=== PATIENT | female | born 1960 | race Caucasian/White ===

== ENCOUNTER 2022-02-13 07:16 | Inpatient (IN) | payer OTHER, MEDICAID, SELFPAY ==
[2022-02-13] VITALS (21 sets, daily range): BP systolic 69–153; BP diastolic 57–91; PULSE 94–149; RESP 16–34; TEMP 36.1–37; O2SAT 94–100; BMI 33.5
--- NOTE | ~2022-02-13 | US_ITS ---
EXAMINATION: US venous doppler [facility] DATE: 02/18/2022 14:01 INDICATION: Bilateral lower limb pain and swelling. TECHNIQUE: Grayscale images without and with compression and Doppler images of the bilateral lower ex tremity veins were obtained. COMPARISON: None FINDINGS: Acute thrombus in the right posterior tibial and peroneal veins. The right common femoral vein, profu nda (deep) femoral vein, femoral vein, popliteal vein veins are patent. The left common femoral vein, profunda femoral vein, femoral vein, popliteal vein, peroneal vein, pos terior tibial veins are patent. IMPRESSION: Acute venous thrombosis involving the right posterior tibial and peroneal veins. Results reported telephonically to Quyen Queen RN by Dr. Henriquez at 4:14 PM on 02/18/2022. Reviewed, dictated and finalized at location K. LER OPERATOR IMPRESSION: Acute venous thrombosis involving the right posterior tibial and peroneal veins . Results reported telephonically to Quyen Queen RN by Dr. Henriquez at 4:14 PM on 02/18/2022.
--- NOTE | ~2022-02-13 | US_ITS ---
EXAMINATION: US venous doppler [facility] DATE: 02/18/2022 14:01 INDICATION: Bilateral upper extremity edema. TECHNIQUE: Grayscale ultrasound images without and with compression and Doppler ultrasound images of the bilateral upper extremity veins were obtained. COMPARISON: None. FINDINGS: The visualized portions of the right internal jugular vein, subclavian vein, axillary vein, brachial veins, basilic vein, cephalic vein, radial vein, and ulnar vein are patent. Acute thrombus in the left brachial, radial, and ulnar veins. The visualized portions of the left int ernal jugular vein, subclavian vein, axillary vein, basilic vein, and cephalic vein are patent. IMPRESSION: Acute thrombus in the left brachial, radial, and ulnar veins. Results reported telephonically to Quyen Queen RN by Dr. Henriquez at 4:22 PM on 02/18/2022. Reviewed, dictated and finalized at location K. LINE WORKER IMPRESSION: Acute thrombus in the left brachial, radial, and ulnar veins. Results reported telephonically to Quyen Queen RN by Dr. Hneriquez at 4:22 P M on 02/18/2022.
--- NOTE | ~2022-02-13 | CT_ITS ---
EXAMINATION: CT soft tissue neck w con DATE: 02/13/2022 10:10 INDICATION: Facial swelling. TECHNIQUE: Computed tomography (CT) of the neck was performed with 75 mL Omnipaque-350 intravenous co ntrast. Automated exposure control and iterative reconstruction technique were employed. The dose-carroll gth product was 555.32 mGy-cm. COMPARISON: None FINDINGS: Right parotid gland is enlarged with increased attenuation and surrounding fat stranding, c onsistent with parotiditis. There is enlargement of the adjacent right masseter muscle, consistent wi th inflammation. There is no sialolith. There are no pathologically enlarged lymph nodes. There are n odules in the thyroid measuring up to 13 mm, likely not clinically significant. There is no visible p laque in the proximal internal carotid arteries. There are likely changes of ocular lens replacement surgeries. There are bilateral otomastoid effusions. There is mild cervical spondylosis. IMPRESSION: 1. Right-sided parotiditis. Reviewed, dictated and finalized at location A. ER SWORDFISH IMPRESSION: 1. Right-sided parotiditis.
--- NOTE | ~2022-02-13 | CT_ITS ---
EXAMINATION: CTA chest PE protocol DATE: 02/13/2022 09:03 INDICATION: Shortness of breath. TECHNIQUE: Computed tomography angiography (CTA) of the chest was performed with 100 mL Omnipaque-350 intravenous contrast timed to evaluate the pulmonary arteries. Coronal maximum intensity projection 3D-reconstructions were created by the technologist. Automated exposure control and iterative reconst ruction technique were employed. The dose-length product was 893.33 mGy-cm. COMPARISON: None. FINDINGS: The lung volumes are small. There is atelectasis bilaterally with an inferior predominance. There is a small left pleural effusion. The heart size is normal. Main pulmonary artery is enlarged, consistent with pulmonary arterial hypertension. There is no pulmonary embolus. Partially visualized is fat stranding in right face and neck. There are nodules in the thyroid measuring up to 9 mm, like ly not clinically significant. There are changes of cholecystectomy. There is mild thoracic spondylos is. There is a chronic burst fracture of L1. IMPRESSION: 1. No pulmonary embolus. 2. Small lung volumes with atelectasis in the lungs with a basilar predominance. 3. Partially visualized fat stranding in right face and neck, consistent with inflammation. Reviewed, dictated and finalized at location A. STRIAL DESIGNER IMPRESSION: 1. No pulmonary embolus. 2. Small lung volumes with atelectasis in the lungs with a basilar predominance . 3. Partially visualized fat stranding in right face and neck, consistent with i nflammation.
--- NOTE | ~2022-02-13 | XR_ITS ---
EXAMINATION: XR chest 1V portable DATE: 02/13/2022 08:03 INDICATION: Shortness of breath. TECHNIQUE: A single frontal view of the chest was obtained. COMPARISON: None. FINDINGS: The lung volumes are small. There is mild atelectasis at the lung bases. No pleural effusio n or pneumothorax. The heart size is normal. IMPRESSION: 1. Small lung volumes with mild atelectasis at the lung bases. Reviewed, dictated and finalized at location A. ERGARTNER
--- NOTE | 2022-02-13 07:17 | ECG_ITS ---
Measurements Intervals [place] Rate: 143 P: MI: 0 QRS: 264 QRSD: 177 T: 0 QT: 359 QTc: 554 Interpretive Statements ATRIAL FIBRILLATION WITH RAPID VENTRICULAR RESPONSE RIGHT BUNDLE BRANCH BLOCK LEFT POSTERIOR FASCICULAR BLOCK CANNOT RULE OUT SEPTAL INFARCT, AGE INDETERMINATE BASELINE WANDER- V1 ABNORMAL ECG NO PREVIOUS ECG AVAILABLE FOR COMPARISON Electronically Signed On 02-13-2022 7:56:09 NICKER by Bahman Antony D.O.
[2022-02-13 07:36] LABS: Alveolar/Arterial O2 Gradient 115.8 mmHg; Carboxyhemoglobin 1.6 % THb (0-2.0); Device NASAL CANNULA; Fractional Inspired Oxygen 36 %; HCO3 ABG 23.4 mEq/l (22.0-26.0); Methemoglobin ABG 0.1 %THb (0-1.5); Modified Allen's Test Pass; Oxygen Content ABG 19.4 %vol (16.0-22.0); Oxygen Saturation ABG 96.7 % (95.0-100.0); Oxyhemoglobin 94.8 % THb (90.0-100.0); PCO2 ABG 42.5 mmHg (35.0-45.0); PO2 ABG 91.6 mmHg (80.0-100.0); PO2 FiO2 Ratio Arterial Blood 2.54 %; Reduced Hemoglobin 3.5 %THb (0-5.0); Site Drawn LEFT RADIAL; Total Hemoglobin 14.5 g/dL (12.0-18.0); pH ABG 7.359 (7.350-7.450)
[2022-02-13] MEDS: SODIUM CHLORIDE 0.9% IV 500 ML 999 ML IV CONT (07:38)
[2022-02-13 07:45] LABS: Basophils Percent Auto 0.1 % (0.2-1.2); Hematocrit 43.9 % (37.0-47.0); Hemoglobin 13.9 g/dL (12.0-15.0); Immature Granulocyte Absolute 0.26 K/mm3 (0.00-0.031); Lymphocytes Absolute Auto 1.19 K/mm3 (0.9-3.2); Lymphocytes Percent Auto 4.7 % (18.3-44.2); Mean Corpuscular HGB Conc 31.7 g/dl (32-36); Mean Corpuscular Volume 91.5 fl (80-100); Mean Platelet Volume 9.5 fl (7.4-10.4); Monocytes Absolute Auto 2.2 K/mm3 (0.1-0.6); Monocytes Percent Auto 8.7 % (2.6-8.5); Neutrophils Absolute Auto 21.4 K/mm3 (1.3-6.7); Neutrophils Percent Auto 85.5 % (45.5-73.1); Platelet Count Result 414 k/mm3 (150-375); Red Cell Distribution Width 14.9 % (11.5-14.5); White Blood Count 25.1 K/mm3 (4.5-10.0)
[2022-02-13 07:55] LABS: Alanine Aminotransferase 49 U/L (6-35); Albumin Level 3.8 g/dL (3.5-5.1); Alkaline Phosphatase 117 U/L (38-126); Anion Gap 16 mmol/L (8-16); Aspartate Amino Transferase 62 U/L (14-36); Bilirubin,Total 1.6 mg/dL (0.2-1.3); Blood Urea Nitrogen 28 mg/dL (7-17); Carbon Dioxide 24 mmol/L (22-30); Chloride 101 mmol/L (98-107); Estimated Glomerular Filt Rate > 60; Glucose 128 mg/dL (65-110); Potassium 3.5 mmol/L (3.4-5.0); Sodium 141 mmol/L (137-145)
[2022-02-13 07:56] LABS: INR 1.4; Prothrombin Time 16.3 Seconds (11.1-14.7)
[2022-02-13 07:57] LABS: Partial Thromboplastin Time 28.8 SECONDS (22.3-36.8)
[2022-02-13 08:03] LABS: NT Pro B Type Natriuretic Pept 1360 pg/mL (5-100)
[2022-02-13 08:08] LABS: Platelet Estimate Increased (Adequate); Poikilocytosis 1+ (NORMAL)
[2022-02-13 08:09] LABS: Burr Cells 1+ (NORMAL); Hypochromasia 1+ (NORMAL); Schistocytes None Seen (NORMAL)
[2022-02-13] MEDS: SODIUM CHLORIDE 0.9% IV 1,000 ML 999 ML IV CONT ×2 (08:22→10:53)
[2022-02-13 08:30] LABS: Influenza A QL RT-PCR Negative (Negative); Influenza B QL RT-PCR Negative (Negative); SARS-CoV-2 RNA PCR Negative
--- NOTE | 2022-02-13 08:57 | PC.NURSE ---
pt at CT
[2022-02-13] MEDS: AMIODARONE 150 MG/D5W 100 ML 150 MG/100 ML BAG 600 MG IV CONT (09:12)
[2022-02-13 09:23] LABS: Appearance Urine Clear (Clear); Bilirubin Urine 2+ (Negative); Blood Urine Trace-intact (Negative); Color Urine Dark Yellow (Yellow); Glucose Urine UA Negative (Negative); Ketones Urine 1+ mg/dL (Negative); Leukocyte Esterase Ur Negative LEU/UL (Negative); Nitrate Urine Negative (Negative); Protein Urine 1+ mg/dL (Negative); Specific Grav Ur 1.015 (1.001-1.035); Urobilinogen Urine >=8.0 mg/dL (<2.0)
[2022-02-13 09:35] LABS: Mucus Urine Rare /lpf; Squamous Epithelial Cell Urine Occasional /hpf (Few)
[2022-02-13 09:37] LABS: Add Urine Microscopic? YES
--- NOTE | 2022-02-13 10:31 | ED.SOB ---
HPI - SOB/Dyspnea General Chief Complaint: Shortness of Breath/Dyspnea Stated Complaint: diff breathing History of Present Illness HPI Narrative: Patient is a 61-year-old female who presents ER with concerns of decreased O2 sat from the detention. Apparently her BiPAP fell off while sleeping last night and her oxygen saturation was 88% this morning. According patient wears BiPAP at all times. Patient unable to provide history as to why she is here. Patient noted to have significant right facial swelling that reports is new. Reports she did have some dental pain earlier last week. Patient also found to be in atrial fibrillation with RVR. Related Data Home Medications Medication Instructions Recorded Confirmed acetaminophen 325 mg tablet 650 mg PO Q6-8H PRN Pain 02/13/22 02/13/22 (Tylenol) acetazolamide 250 mg tablet 250 mg PO DAILY 02/13/22 02/13/22 albuterol sulfate 2.5 mg/3 mL 2.5 mg inhalation Q4-6H 02/13/22 02/13/22 (0.083 %) solution for nebulization aspirin 81 mg tablet,delayed 81 mg PO DAILY 02/13/22 02/13/22 release bisacodyl 10 mg rectal suppository 10 mg RECTAL BID PRN Constipation 02/13/22 02/13/22 furosemide 40 mg tablet 40 mg PO DAILY 02/13/22 02/13/22 magnesium citrate (Citroma oral 296 ml PO DAILY PRN Constipation 02/13/22 02/13/22 solution) magnesium hydroxide 400 mg/5 mL 30 ml PO HS PRN Constipation 02/13/22 02/13/22 oral suspension (Milk of Magnesia) menthol-cetylpyridinium Cl 2 mg 1 ruma mucous membrane Q2-3H PRN 02/13/22 02/13/22 lozenges Cough multivitamin with iron-mineral 1 tablet PO DAILY 02/13/22 02/13/22 phenol 1.4 % mucosal aerosol spray 1 spray mucous membrane Q4H PRN 02/13/22 02/13/22 Dry Mouth potassium chloride 20 mEq 20 meq PO DAILY 02/13/22 02/13/22 tablet,extended release sennosides 8.6 mg-docusate sodium 2 tab-cap PO HS 02/13/22 02/13/22 50 mg tablet (Senna Plus) sodium phosphates 19 gram-7 118 ml RECTAL BID PRN Constipation 02/13/22 02/13/22 gram/118 mL enema (Fleet Enema) spironolactone 25 mg tablet 25 mg PO BID 02/13/22 02/13/22 tolnaftate 1 % topical aerosol 1 spray topical DAILY PRN Skin 02/13/22 02/13/22 Irritation Allergies Allergy/AdvReac Type Severity Reaction Status Date / Time grape Allergy Unknown Verified 02/13/22 13:10 shellfish derived Allergy Unknown Verified 02/13/22 13:10 Review of Systems Review of Systems: ROS unobtainable: Yes unobtainable due to mental status [facility] Past Medical History Medical History (Updated 02/13/22 @ 19:02 by Frederic Crystal MD) Myotonic muscular dystrophy Surgical History Surgical History (Updated 02/13/22 @ 19:01 by Frederic Crystal MD) Surgical history unknown Social History Social History Smoking status: Former smoker Exam Narrative: GENERAL: Chronically ill-appearing, obese, and in no acute distress. HEAD: Normocephalic, atraumatic. EYES: PERRL and EOMI. ENT: Mucous membranes moist. Significant enlargement of the right parotid gland with erythema/warmth/tenderness going from the ear down to the mid neck. NECK: Induration along the right anterior neck from parotiditis. No tracheal deviation. CHEST: Clear to auscultation. No respiratory distress. HEART: Regular rate and rhythm. Normal peripheral pulses. ABDOMEN: Soft, nontender, nondistended. EXTREMITIES: Chronically weak related to muscular dystrophy. No deformity of the upper or lower extremities. SKIN: Warm, dry, no rash. NEURO: Alert and oriented x1. Course Course Emergency Course: Admit to hospitalist service. Discussed parotitis with Dr. Blackmon with ENT. Feels if symptoms not improving in 2 days repeat imaging to rule out abscess would be melgar but no surgical management at this time. He would recommend hot compresses in addition to the Unasyn that is being given. Patient started on amiodarone and attempts to control atrial fibrillation. Vital Signs Vital signs: Vital Signs Temperature 98.6 F
[2022-02-13] MEDS: AMPICILLIN SULB 3 GM/NS 100 ML 3 GM/100 ML VIAL IVPB ×3 (10:48→23:34)
[2022-02-13] MEDS: ENTER PT HEIGHT XX (10:55)
[2022-02-13] MEDS: AMIODARONE 360 MG/D5W 200 ML 360 MG/200 ML BAG 33.33 MG IV CONT (10:55)
[2022-02-13] MEDS: SODIUM CHLORIDE 0.9% IV 1,000 ML 125 ML IV CONT ×2 (12:36→20:24)
[2022-02-13] MEDS: MORPHINE SULFATE (*CRX) 4 MG/ML INJ IV PUSH (12:47)
--- NOTE | 2022-02-13 13:45 | ADMGEN ---
This patient, Blessing Demarco, was admitted to IMU Room 211-01. Patient/family oriented to hospital policies and general routines including ID bracelet, bed and alarms, visiting hours, pain management, procedures, bathroom and other care routines, personal items, smoking policy, room service/diet, and visiting hours. Information on how to activate the Rapid Response Team has been discussed. Patient/Family are encouraged to report perceived risks to care and to ask questions if they do not understand what they are told or what they should do.
[2022-02-13] MEDS: AMIODARONE 360 MG/D5W 200 ML 360 MG/200 ML BAG 16.67 MG IV CONT (20:23)
[2022-02-13] MEDS: SPIRONOLACTONE 25 MG TABLET PO (20:26)
[2022-02-13] MEDS: SENNA/DOCUSATE SODIUM TABLET 2 TAB PO (20:26)
--- NOTE | 2022-02-13 20:40 | PM.IMHP ---
H&P: HPI History of Present Illness Date/Time: 02/13/22 20:40 Chief Complaint: 61 years old female with past medical history of myotonic muscular dystrophy with chronic hypoxemic respiratory failure require BiPAP for 22 hours out of 24 hours a day presented to the hospital with hypoxia patient noted to have hypoxia her O2 sat was 88 patient had her BiPAP fallen out yesterday and since then her O2 sat was an 88 patient denies shortness of breath patient had positive facial swelling patient is poor historian history was taken from the ER record at the ER patient was found to have leukocytosis AFib with RVR given IV Cardizem started on amiodarone drip CT scan soft tissue shows positive parotitis patient was started on IV antibiotic CT scan of the chest positive for atelectasis negative for pneumonia or PE Patient condition worsening lately patient is still full code Review of Systems Review of Systems: Patient is poor historian history is limited PMFSH Past Medical History Medical History (Updated 02/13/22 @ 20:58 by Sabas Powell MD) Myotonic muscular dystrophy Surgical History Surgical History Surgical history unknown Social History Social History Smoking status: Former smoker Meds Home Medications and Allergies Home Medications Medication Instructions Recorded Confirmed Type acetaminophen 325 mg tablet 650 mg PO Q6-8H PRN Pain 02/13/22 02/13/22 History (Tylenol) acetazolamide 250 mg tablet 250 mg PO DAILY 02/13/22 02/13/22 History albuterol sulfate 2.5 mg/3 mL 2.5 mg inhalation Q4-6H 02/13/22 02/13/22 History (0.083 %) solution for nebulization aspirin 81 mg tablet,delayed 81 mg PO DAILY 02/13/22 02/13/22 History release bisacodyl 10 mg rectal suppository 10 mg RECTAL BID PRN Constipation 02/13/22 02/13/22 History furosemide 40 mg tablet 40 mg PO DAILY 02/13/22 02/13/22 History magnesium citrate (Citroma oral 296 ml PO DAILY PRN Constipation 02/13/22 02/13/22 History solution) magnesium hydroxide 400 mg/5 mL 30 ml PO HS PRN Constipation 02/13/22 02/13/22 History oral suspension (Milk of Magnesia) menthol-cetylpyridinium Cl 2 mg 1 ruma mucous membrane Q2-3H PRN 02/13/22 02/13/22 History lozenges Cough multivitamin with iron-mineral 1 tablet PO DAILY 02/13/22 02/13/22 History phenol 1.4 % mucosal aerosol spray 1 spray mucous membrane Q4H PRN 02/13/22 02/13/22 History Dry Mouth potassium chloride 20 mEq 20 meq PO DAILY 02/13/22 02/13/22 History tablet,extended release sennosides 8.6 mg-docusate sodium 2 tab-cap PO HS 02/13/22 02/13/22 History 50 mg tablet (Senna Plus) sodium phosphates 19 gram-7 118 ml RECTAL BID PRN Constipation 02/13/22 02/13/22 History gram/118 mL enema (Fleet Enema) spironolactone 25 mg tablet 25 mg PO BID 02/13/22 02/13/22 History tolnaftate 1 % topical aerosol 1 spray topical DAILY PRN Skin 02/13/22 02/13/22 History Irritation Allergies Allergy/AdvReac Type Severity Reaction Status Date / Time grape Allergy Unknown Verified 02/13/22 13:10 shellfish derived Allergy Unknown Verified 02/13/22 13:10 Vital Signs Vital Signs - 24 hr 02/13/22 07:12 02/13/22 07:46 02/13/22 09:12 Temperature 98.6 F Pulse Rate 141 H 125 H Respiratory Rate 22 H Blood Pressure 104/78 103/68 Pulse Oximetry 97 99 Oxygen Delivery Nasal Cannula Nasal Cannula Oxygen Flow Rate 4 4 02/13/22 07:41 02/13/22 07:45 02/13/22 07:58 Temperature Pulse Rate 149 H 133 H 143 H Respiratory Rate 34 H 33 H 31 H Blood Pressure 95/62 L 92/66 L 69/57 L Pulse Oximetry Oxygen Delivery Oxygen Flow Rate 02/13/22 07:59 02/13/22 08:00 02/13/22 08:15 Temperature Pulse Rate 142 H 127 H 137 H Respiratory Rate 26 H 20 23 H Blood Pressure 115/59 L 88/67 L 101/77 Pulse Oximetry Oxygen Delivery Oxygen Flow Rate 02/13/22
[2022-02-14] VITALS (17 sets, daily range): BP systolic 97–116; BP diastolic 55–68; PULSE 68–123; RESP 18–26; TEMP 36.1–37.1; O2SAT 94–100
--- NOTE | 2022-02-14 | ECHO_ITS ---
Patient Info Name: Blessing Demarco Age: 61 years : 1960 Gender: Female Ht: 65 in Wt: 201 lbs BSA: 2.08 m2 HR: 103 bpm BP: 114 / 57 mmHg Heart Rhythm: Atrial Fibrillation Technical Quality: Fair Exam Date: 02/14/2022 9:21 AM Exam Location: [facility] Patient Status: Inpatient Admit Date: 02/13/2022 Staff Ordering Physician: Sabas Powell M.A., MD Circulation Librarian: Teresa Paz RDCS Attending Provider: Thaddeus Abbott MD Referring Physician: Hardy [facility]; Exam Type: CA echo doppler color flow Study Info Indications - afib Complete two-dimensional, color flow and Doppler transthoracic echocardiogram is performed. Summary 1. Technically difficult study. 2. Left ventricular systolic function is normal, estimated at 55-60%. 3. Right ventricular systolic function is normal. 4. There is mild mitral valve regurgitation. 5. There is trace tricuspid valve regurgitation. Left Ventricle Left ventricular chamber dimension is normal. Left ventricular systolic function is normal, estimated at 55-60%. There is no increased left ventricular wall thickness. Right Ventricle Right ventricular chamber dimension is normal. Right ventricular systolic function is normal. Left Atria Left atrial chamber dimension is normal. Right Atria Right atrial chamber dimension is normal. Aortic Valve The aortic valve is probable trileaflet. There is no aortic valve stenosis. There is no aortic valve regurgitation. Pulmonic Valve The pulmonic valve is not well visualized. Mitral Valve The mitral valve has normal leaflets. There is no mitral valve stenosis. There is mild mitral valve regurgitation. Tricuspid Valve The tricuspid valve leaflets are not well visualized. There is trace tricuspid valve regurgitation. Pericardium/Pleural There is small pericardial effusion. Aorta The aortic root size at the sinus of Valsalva is normal. Left Ventricular Outflow Tract Name Value Normal LVOT 2D LVOT Diameter 2.1 cm LVOT Doppler LVOT Peak Gradient 4 mmHg LVOT Mean Gradient 2 mmHg LVOT VTI 11 cm LVOT VTI/AV VTI Ratio 0.9 LVOT Stroke Volume 40 ml LVOT CO 4.0 l/min LVOT CI 1.9 l/min/m2 Pulmonic Valve Name Value Normal RVOT Doppler RVOT Peak Gradient 2 mmHg PV Doppler PV Peak Gradient 4 mmHg Mitral Valve Name Value Normal
[2022-02-14] MEDS: SODIUM CHLORIDE 0.9% IV 1,000 ML 125 ML IV CONT ×2 (04:11→12:57)
[2022-02-14] MEDS: AMPICILLIN SULB 3 GM/NS 100 ML 3 GM/100 ML VIAL IVPB ×3 (06:00→17:56)
[2022-02-14] MEDS: AMIODARONE 360 MG/D5W 200 ML 360 MG/200 ML BAG 16.67 MG IV CONT ×2 (08:09→20:59)
[2022-02-14] MEDS: THERAPEUTIC MULTIVITAMINS/MINERALS TAB (*BKC) 1 TABLET PO (08:13)
[2022-02-14] MEDS: ASPIRIN 81 MG ENTERIC TABLET PO (08:13)
[2022-02-14] MEDS: acetaZOLAMIDE TAB 250 MG TABLET PO (08:13)
[2022-02-14] MEDS: POTASSIUM CHLORIDE 20 MEQ TABLET.ER PO (08:13)
[2022-02-14] MEDS: SPIRONOLACTONE 25 MG TABLET PO ×2 (08:13→17:57)
[2022-02-14] MEDS: FUROSEMIDE 40 MG TABLET PO (08:13)
[2022-02-14] MEDS: ENOXAPARIN 40 MG/0.4 ML SYRINGE SUB-Q (08:14)
--- NOTE | 2022-02-14 10:13 | PM.IMPN ---
Progress Note: A&P Assessment and Plan (1) Atrial fibrillation with RVR: Code(s): I48.91 - Unspecified atrial fibrillation Status: Acute Assessment and Plan: Status post Cardizem drip Cardiology consulted Echo pending Chads score is 1 Will give aspirin (2) Acute parotitis: Code(s): K11.21 - Acute sialoadenitis Status: Acute Assessment and Plan: Associated with sepsis Reviewed CT scan of the neck Continue broad-spectrum IV antibiotic (3) Hypoxia: Code(s): R09.02 - Hypoxemia Status: Acute Assessment and Plan: Most likely related to atelectasis and sepsis Continue oxygen supplementation ordered CTA is negative for PE shows atelectasis Bronchodilators as ordered (4) 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 Status: Acute Assessment and Plan: Progressive patient currently BiPAP dependent 22 hours out of 24 hours a day Patient may need palliative care/hospice eval (5) Bacteremia: Code(s): R78.81 - Bacteremia Status: Acute Assessment and Plan: Gram-positive cocci in clusters in both aerobic bottle Start IV vancomycin Await identification Subjective Date/time seen: 02/14/22 10:13 Interval history: 61 years old female with past medical history of myotonic muscular dystrophy with chronic hypoxemic respiratory failure require BiPAP for 22 hours out of 24 hours a day presented to the hospital with hypoxia patient noted to have hypoxia her O2 sat was 88 patient had her BiPAP fallen out yesterday and since then her O2 sat was an 88 patient denies shortness of breath patient had positive facial swelling patient is poor historian history was taken from the ER record at the ER patient was found to have leukocytosis AFib with RVR given IV Cardizem started on amiodarone drip CT scan soft tissue shows positive parotitis patient was started on IV antibiotic CT scan of the chest positive for atelectasis negative for pneumonia or PE Patient condition worsening lately patient is still full code 02/14/2022 no overnight events. Remains on amiodarone drip. BNP elevated at 1360. Lactic acid 1. CT scan soft tissue neck with right-sided parotitis. CTA is negative for PE. Small lung volumes with atelectasis in the lungs with basilar predominance. Partially visualized fat stranding and right neck and face consistent with inflammation. Bacteremia present this morning. Gram-positive cocci in clusters from both aerobic bottles noted the same. at bedside Review of Systems Review of Systems: All systems reviewed & are unremarkable except as noted in HPI and below Exam Narrative: GENERAL: ill looking, non-toxic, in no acute distress. HEAD: normocephalic, atraumatic NECK: Positive facial swelling RESPIRATORY: Airway patent, respirations nonlabored. coarse breath sounds bilaterally, no rales, rhonchi, wheezing. CARDIOVASCULAR: Regular rate and rhythm without murmurs, rubs, or gallops. Peripheral pulses 2+ and equal bilaterally. ABDOMINAL: Soft, nontender, nondistended, no hepatosplenomegaly. Normoactive BS. MUSCULOSKELETAL: Moves all extremities. SKIN: Warm, dry, normal color. No rashes. NEURO: alert on BiPAP, oriented to person and place, generalized weakness PSYCHIATRIC: Appropriate mood and affect. Normal interaction. Objective Data Vital Signs Vital Signs: Vital Signs - 24 hr 02/13/22 10:55 02/13/22 11:00 02/13/22 11:15 Temperature Pulse Rate 129 H 117 H 122 H Respiratory Rate 27 H 30 H Blood Pressure 101/91 H 94/66 L 100/68 Pulse Oximetry Oxygen Delivery Oxygen Flow Rate 02/13/22 11:30 02/13/22 12:28 02/13/22 16:00 Temperature 98.5 F Pulse Rate 120 H 94 108 H Respiratory Rate 29 H 16 25 H Blood Pressure 102/87 112/71 Pulse Oximetry 94 98 Oxygen Delivery Autopap Oxygen Flow Rate 02/13/22 18:52 02/13/22 20:00 02/13/22 20:23 Temperature 98.5 F 97.0 F L
[2022-02-14 12:26] LABS: Basophils Percent Auto 0.2 % (0.2-1.2); Eosinophils Percent Auto 0.2 % (0-4.4); Hematocrit 38.5 % (37.0-47.0); Hemoglobin 11.8 g/dL (12.0-15.0); Immature Granulocyte Absolute 0.15 K/mm3 (0.00-0.031); Immature Granulocyte Percent A 0.8 % (0-0.5); Lymphocytes Absolute Auto 1.65 K/mm3 (0.9-3.2); Lymphocytes Percent Auto 8.5 % (18.3-44.2); Mean Corpuscular HGB Conc 30.6 g/dl (32-36); Mean Corpuscular Hemoglobin 28.9 pg (26-34); Mean Corpuscular Volume 94.4 fl (80-100); Mean Platelet Volume 9.5 fl (7.4-10.4); Monocytes Percent Auto 5.2 % (2.6-8.5); Neutrophils Absolute Auto 16.6 K/mm3 (1.3-6.7); Neutrophils Percent Auto 85.1 % (45.5-73.1); Platelet Count Result 335 k/mm3 (150-375); Red Blood Count 4.08 M/mm3 (4.2-5.4); Red Cell Distribution Width 15.1 % (11.5-14.5); White Blood Count 19.5 K/mm3 (4.5-10.0)
[2022-02-14 12:51] LABS: Alanine Aminotransferase 36 U/L (6-35); Albumin Level 2.7 g/dL (3.5-5.1); Alkaline Phosphatase 115 U/L (38-126); Anion Gap 7 mmol/L (8-16); Aspartate Amino Transferase 32 U/L (14-36); Bilirubin,Total 0.7 mg/dL (0.2-1.3); Blood Urea Nitrogen 8 mg/dL (7-17); Calcium 7.5 mg/dL (8.4-10.2); Carbon Dioxide 25 mmol/L (22-30); Chloride 108 mmol/L (98-107); Estimated CRCL calculation 128 ml/min; Estimated Glomerular Filt Rate > 60; Glucose 113 mg/dL (65-110); Magnesium 2.1 mg/dL (1.6-2.3); Potassium 3.1 mmol/L (3.4-5.0); Sodium 140 mmol/L (137-145)
--- NOTE | 2022-02-14 12:56 | PM.CNCAR ---
Assessment and Plan Assessment and plan (1) Atrial fibrillation with RVR: Code(s): I48.91 - Unspecified atrial fibrillation Status: Acute Assessment and Plan: New diagnosis of atrial fibrillation in the setting of right parotitis and now bacteremia. Echo is ordered and pending. At this time [id number] score is 0, however, would obtain prior medical records to see if she has any other diagnoses that would increase her CHADS score. We do not have prior records in our chart at this time. Would continue with Amio drip for now given HR still a bit elevated. Recommend to check TSH level as well. History of Present Illness History of Present Illness Consult date/time: 02/14/22 12:56 Requesting physician: Sabas Powell M.A., MD Consult reason: atrial fibrillation Reason For Visit: Afib RVR, Parotiditis Narrative: We are being consulted for atrial fibrillation with RVR. This is a 61-year-old female with a history of myotonic muscular dystrophy with chronic hypoxemic respiratory failure who presented with hypoxia and facial swelling. In the ER, patient found to be in atrial fibrillation with RVR. Was started on Amio drip. CT scan shows right-sided parotitis. Gram-positive cocci in clusters are now growing in blood cultures. Patient remains on Amio drip this AM. HR in the 100s-110s. BP stable. Patient on BIPAP this AM. Denies chest pain, shortness of breath, palpitations. Main concern is pain in her face. Patient denies any prior history of atrial fibrillation. Review of Systems Review of Systems: 12-point ROS obtained. Negative, unless stated in HPI. [facility] Past Medical History Medical History Myotonic muscular dystrophy Surgical History Surgical History Surgical history unknown Social History Social History Smoking status: Former smoker Meds Home Medications and Allergies Home Medications Medication Instructions Recorded Confirmed Type acetaminophen 325 mg tablet 650 mg PO Q6-8H PRN Pain 02/13/22 02/13/22 History (Tylenol) acetazolamide 250 mg tablet 250 mg PO DAILY 02/13/22 02/13/22 History albuterol sulfate 2.5 mg/3 mL 2.5 mg inhalation Q4-6H 02/13/22 02/13/22 History (0.083 %) solution for nebulization aspirin 81 mg tablet,delayed 81 mg PO DAILY 02/13/22 02/13/22 History release bisacodyl 10 mg rectal suppository 10 mg RECTAL BID PRN Constipation 02/13/22 02/13/22 History furosemide 40 mg tablet 40 mg PO DAILY 02/13/22 02/13/22 History magnesium citrate (Citroma oral 296 ml PO DAILY PRN Constipation 02/13/22 02/13/22 History solution) magnesium hydroxide 400 mg/5 mL 30 ml PO HS PRN Constipation 02/13/22 02/13/22 History oral suspension (Milk of Magnesia) menthol-cetylpyridinium Cl 2 mg 1 ruma mucous membrane Q2-3H PRN 02/13/22 02/13/22 History lozenges Cough multivitamin with iron-mineral 1 tablet PO DAILY 02/13/22 02/13/22 History phenol 1.4 % mucosal aerosol spray 1 spray mucous membrane Q4H PRN 02/13/22 02/13/22 History Dry Mouth potassium chloride 20 mEq 20 meq PO DAILY 02/13/22 02/13/22 History tablet,extended release sennosides 8.6 mg-docusate sodium 2 tab-cap PO HS 02/13/22 02/13/22 History 50 mg tablet (Senna Plus) sodium phosphates 19 gram-7 118 ml RECTAL BID PRN Constipation 02/13/22 02/13/22 History gram/118 mL enema (Fleet Enema) spironolactone 25 mg tablet 25 mg PO BID 02/13/22 02/13/22 History tolnaftate 1 % topical aerosol 1 spray topical DAILY PRN Skin 02/13/22 02/13/22 History Irritation Allergies Allergy/AdvReac Type Severity Reaction Status Date / Time grape Allergy Unknown Verified 02/13/22 13:10 shellfish derived Allergy Unknown Verified 02/13/22 13:10 Vital Signs Vital Signs - 24 hr 02/13/22 16:00 02/13/22 18:52 02/13/22 20:00 Temperature 36.9 C 36.1 C L P
--- NOTE | 2022-02-14 15:58 | ECG_ITS ---
Measurements Intervals [place] Rate: 104 P: [place]: 0 QRS: -76 QRSD: 214 T: 120 QT: 495 QTc: 652 Interpretive Statements ATRIAL FIBRILLATION WITH RAPID VENTRICULAR RESPONSE VENTRICULAR PREMATURE COMPLEX RIGHT BUNDLE BRANCH BLOCK LEFT ANTERIOR FASCICULAR BLOCK BASELINE WANDER- AVR, AVL, AVF, V1-V3, V5-V6 ABNORMAL ECG COMPARED TO ECG 02/13/2022 07:23:33 HEART RATE HAS DECREASED Electronically Signed On 02-14-2022 17:26:16 [employer] by Bahman Antony D.O.
[2022-02-14] MEDS: POTASSIUM CHLORIDE INJ 40 MEQ in SODIUM CHLORIDE 0.9% IV 500 ML 130 MEQ IVPB (16:33)
[2022-02-14 20:46] LABS: Thyroid Stimulating Hormone Reflex 0.178 uIU/mL (0.465-4.68)
[2022-02-14] MEDS: SENNA/DOCUSATE SODIUM TABLET 2 TAB PO (20:53)
[2022-02-14 21:27] LABS: Free T4 Free Thyroxine Reflex 2.17 ng/dL (0.78-2.19)
[2022-02-14 22:42] LABS: Total Triiodothyronine (T3) 0.53 NG/ML (0.97-1.69)
[2022-02-15] VITALS (20 sets, daily range): BP systolic 83–114; BP diastolic 52–78; PULSE 65–114; RESP 14–32; TEMP 36.1–37.1; O2SAT 94–100
[2022-02-15] MEDS: AMPICILLIN SULB 3 GM/NS 100 ML 3 GM/100 ML VIAL IVPB ×4 (00:16→20:01)
[2022-02-15 05:14] LABS: Basophils Percent Auto 0.2 % (0.2-1.2); Eosinophils Absolute Auto 0.3 K/mm3 (0-0.3); Eosinophils Percent Auto 1.8 % (0-4.4); Hematocrit 36.3 % (37.0-47.0); Hemoglobin 11.6 g/dL (12.0-15.0); Immature Granulocyte Absolute 0.15 K/mm3 (0.00-0.031); Immature Granulocyte Percent A 0.8 % (0-0.5); Lymphocytes Absolute Auto 1.78 K/mm3 (0.9-3.2); Mean Corpuscular Hemoglobin 29.1 pg (26-34); Mean Corpuscular Volume 91.2 fl (80-100); Mean Platelet Volume 9.4 fl (7.4-10.4); Monocytes Absolute Auto 0.9 K/mm3 (0.1-0.6); Monocytes Percent Auto 5.1 % (2.6-8.5); Neutrophils Absolute Auto 14.6 K/mm3 (1.3-6.7); Neutrophils Percent Auto 82.1 % (45.5-73.1); Platelet Count Result 347 k/mm3 (150-375); Red Blood Count 3.98 M/mm3 (4.2-5.4); Red Cell Distribution Width 14.9 % (11.5-14.5); White Blood Count 17.8 K/mm3 (4.5-10.0)
[2022-02-15 05:25] LABS: Alanine Aminotransferase 30 U/L (6-35); Albumin Level 2.5 g/dL (3.5-5.1); Alkaline Phosphatase 102 U/L (38-126); Anion Gap 8 mmol/L (8-16); Aspartate Amino Transferase 34 U/L (14-36); Bilirubin,Total 0.5 mg/dL (0.2-1.3); Blood Urea Nitrogen 4 mg/dL (7-17); Calcium 7.7 mg/dL (8.4-10.2); Carbon Dioxide 28 mmol/L (22-30); Chloride 103 mmol/L (98-107); Estimated CRCL calculation 128 ml/min; Estimated Glomerular Filt Rate > 60; Glucose 110 mg/dL (65-110); Potassium 3.6 mmol/L (3.4-5.0); Sodium 139 mmol/L (137-145)
[2022-02-15] MEDS: POTASSIUM CHLORIDE 20 MEQ TABLET.ER PO (08:47)
[2022-02-15] MEDS: FUROSEMIDE 40 MG TABLET PO (08:47)
[2022-02-15] MEDS: acetaZOLAMIDE TAB 250 MG TABLET PO (08:47)
[2022-02-15] MEDS: THERAPEUTIC MULTIVITAMINS/MINERALS TAB (*BKC) 1 TABLET PO (08:47)
[2022-02-15] MEDS: SPIRONOLACTONE 25 MG TABLET PO ×2 (08:47→20:03)
[2022-02-15] MEDS: ASPIRIN 81 MG ENTERIC TABLET PO (08:47)
[2022-02-15] MEDS: ENOXAPARIN 40 MG/0.4 ML SYRINGE SUB-Q (08:48)
[2022-02-15] MEDS: AMIODARONE 360 MG/D5W 200 ML 360 MG/200 ML BAG 16.67 MG IV CONT (09:58)
--- NOTE | 2022-02-15 11:57 | PM.PNCARD ---
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 Echo shows preserved LVEF without significant valvular disease. At this time [id number] score is 0, however, would obtain prior medical records to see if she has any other diagnoses that would increase her CHADS score. We do not have prior records in our chart at this time. HR improved with Amiodarone drip. HR in the 80s this AM. Will stop Amio drip and switch to PO Amio. Will start Metoprolol as well. Time Spent With Patient Time with patient: 15 - 25 minutes Subjective Date/time seen: 02/15/22 11:57 Interval history: Reason for visit: Atrial fibrillation with RVR No acute events overnight. Rate control is better. Patient sleepy this AM. Family at bedside. Review of Systems Review of Systems: 8-point ROS obtained. Negative, unless stated in HPI. Exam Const: General: no acute distress Other: Obese female HENMT: Mouth: Yes moist mucous membranes Eyes: General: appearance normal, both eyes and all related structures Sclera: sclerae normal Neck: Neck: supple Other: JVD difficult to assess given body habitus. Resp: Auscultation: diminished lung sounds Other: On BIPAP. Cardio: Rhythm: abnormal rhythm irregularly irregular GI: GI Palp: Yes Soft to palpation Skin: General skin exam: normal color Neuro: Speech: normal speech Extrem: General: no edema Psych: Mental Status: mental status grossly normal Objective Data Vital Signs Vital Signs: Vital Signs - 24 hr 02/14/22 12:00 02/14/22 13:41 02/14/22 14:39 Temperature 36.6 C 37.0 C Pulse Rate 103 H 92 68 Respiratory Rate 24 H 25 H 18 Blood Pressure 112/63 116/68 Pulse Oximetry 100 94 94 Oxygen Delivery Autopap Oxygen Flow Rate 02/14/22 12:00 02/14/22 16:00 02/14/22 16:00 Temperature 36.1 C L Pulse Rate 68 98 Respiratory Rate 18 24 H Blood Pressure 100/62 Pulse Oximetry 94 100 Oxygen Delivery Autopap Autopap Oxygen Flow Rate 2 02/14/22 16:00 02/14/22 12:00 02/14/22 14:00 Temperature Pulse Rate 109 H 102 H 102 H Respiratory Rate Blood Pressure Pulse Oximetry Oxygen Delivery Oxygen Flow Rate 02/14/22 20:00 02/14/22 20:59 02/14/22 20:00 Temperature 36.2 C L Pulse Rate 104 H 107 H 103 H Respiratory Rate 22 H Blood Pressure 97/61 L Pulse Oximetry 97 Oxygen Delivery Oxygen Flow Rate 02/14/22 20:00 02/14/22 22:41 02/15/22 00:00 Temperature 36.4 C L Pulse Rate 107 H 91 114 H Respiratory Rate 22 H 22 H 22 H Blood Pressure 114/78 Pulse Oximetry 100 95 99 Oxygen Delivery Autopap Autopap Oxygen Flow Rate 02/15/22 00:00 02/15/22 00:00 02/15/22 02:35 Temperature Pulse Rate 100 114 H 107 H Respiratory Rate 22 H 22 H Blood Pressure Pulse Oximetry 99 100 Oxygen Delivery Autopap Autopap Oxygen Flow Rate 02/15/22 02:36 02/15/22 04:00 02/15/22 04:00 Temperature Pulse Rate 107 H 107 H Respiratory Rate 22 H Blood Pressure Pulse Oximetry 100 100 Oxygen Delivery Autopap Autopap Oxygen Flow Rate 2 02/15/22 04:00 02/15/22 05:25 02/15/22 06:00 Temperature 37.1 C Pulse Rate 109 H 99 110 H Respiratory Rate 22 H 20 Blood Pressure 96/62 L Pulse Oximetry 98 99 Oxygen Delivery Autopap Oxygen Flow Rate 02/15/22 07:54 02/15/22 08:11 02/15/22 08:11 Temperature 36.8 C Pulse Rate 105 H 101 H Respiratory Rate 20 26 H Blood Pressure 100/53 L Pulse Oximetry 94 97 97 Oxygen Delivery Autopap Autopap Oxyg
[2022-02-15] MEDS: AMIODARONE HCL 200 MG TABLET 400 MG PO ×2 (13:14→20:02)
[2022-02-15] MEDS: METOPROLOL TARTRATE 25 MG TABLET PO ×2 (13:14→20:03)
--- NOTE | 2022-02-15 14:05 | PM.IMPN ---
Progress Note: A&P Assessment and Plan (1) Atrial fibrillation with RVR: Code(s): I48.91 - Unspecified atrial fibrillation Status: Acute Assessment and Plan: Status post amiodarone drip Cardiology consulted Echo EF 55-60% Chads score is 1 Placed on aspirin (2) Acute parotitis: Code(s): K11.21 - Acute sialoadenitis Status: Acute Assessment and Plan: Associated with sepsis Reviewed CT scan of the neck with acute right parotitis Continue broad-spectrum IV antibiotic (3) Hypoxia: Code(s): R09.02 - Hypoxemia Status: Acute Assessment and Plan: Most likely related to atelectasis and sepsis Continue oxygen supplementation ordered CTA is negative for PE shows atelectasis Bronchodilators as ordered (4) 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 Status: Acute Assessment and Plan: Progressive patient currently BiPAP dependent 22 hours out of 24 hours a day Patient may need palliative care/hospice eval (5) Bacteremia: Code(s): R78.81 - Bacteremia Status: Acute Assessment and Plan: Gram-positive cocci in clusters in both aerobic bottle Start IV vancomycin Identified as Staph aureus Will repeat blood culture today Subjective Date/time seen: 02/15/22 14:05 Interval history: 61 years old female with past medical history of myotonic muscular dystrophy with chronic hypoxemic respiratory failure require BiPAP for 22 hours out of 24 hours a day presented to the hospital with hypoxia patient noted to have hypoxia her O2 sat was 88 patient had her BiPAP fallen out yesterday and since then her O2 sat was an 88 patient denies shortness of breath patient had positive facial swelling patient is poor historian history was taken from the ER record at the ER patient was found to have leukocytosis AFib with RVR given IV Cardizem started on amiodarone drip CT scan soft tissue shows positive parotitis patient was started on IV antibiotic CT scan of the chest positive for atelectasis negative for pneumonia or PE Patient condition worsening lately patient is still full code 02/14/2022 no overnight events. Remains on amiodarone drip. BNP elevated at 1360. Lactic acid 1. CT scan soft tissue neck with right-sided parotitis. CTA is negative for PE. Small lung volumes with atelectasis in the lungs with basilar predominance. Partially visualized fat stranding and right neck and face consistent with inflammation. Bacteremia present this morning. Gram-positive cocci in clusters from both aerobic bottles noted the same. at bedside 02/15/2022: No overnight events. Patient continues to feel sore on her right neck area. Remains on amiodarone drip. Remains on AFib but rate controlled. Review of Systems Review of Systems: All systems reviewed & are unremarkable except as noted in HPI and below Exam Narrative: GENERAL: ill looking, non-toxic, in no acute distress. HEAD: normocephalic, atraumatic NECK: Positive facial swelling RESPIRATORY: Airway patent, respirations nonlabored. coarse breath sounds bilaterally, no rales, rhonchi, wheezing. CARDIOVASCULAR: Irregularly irregular rate controlled without murmurs, rubs, or gallops. Peripheral pulses 2+ and equal bilaterally. ABDOMINAL: Soft, nontender, nondistended, no hepatosplenomegaly. Normoactive BS. MUSCULOSKELETAL: Moves all extremities. SKIN: Warm, dry, normal color. No rashes. NEURO: alert on BiPAP, oriented to person and place, generalized weakness PSYCHIATRIC: Appropriate mood and affect. Normal interaction. Objective Data Vital Signs Vital Signs: Vital Signs - 24 hr 02/14/22 14:39 02/14/22 16:00 02/14/22 16:00 Temperature 98.6 F 97.0 F L Pulse Rate 68 98 Respiratory Rate 18 24 H Blood Pressure 116/68 100/62 Pulse Oximetry 94 100 Oxygen Delivery Autopap Oxygen Flow Rate 2 02/14/22 16:00 02/14/22 20:00 02/14/22 20:59 Temperature 9
[2022-02-15] MEDS: SENNA/DOCUSATE SODIUM TABLET 2 TAB PO (20:01)
[2022-02-16] VITALS (17 sets, daily range): BP systolic 82–106; BP diastolic 44–67; PULSE 73–93; RESP 14–28; TEMP 36.1–36.4; O2SAT 98–100
[2022-02-16] MEDS: AMPICILLIN SULB 3 GM/NS 100 ML 3 GM/100 ML VIAL IVPB ×3 (00:25→12:30)
[2022-02-16 00:39] LABS: Vancomycin Trough 19.7 ug/mL (10.0-20.0)
[2022-02-16 06:29] LABS: Basophils Absolute Auto 0.1 K/mm3 (0.0-0.1); Basophils Percent Auto 0.5 % (0.2-1.2); Eosinophils Absolute Auto 0.4 K/mm3 (0-0.3); Eosinophils Percent Auto 3.3 % (0-4.4); Hematocrit 37.1 % (37.0-47.0); Hemoglobin 11.3 g/dL (12.0-15.0); Immature Granulocyte Percent A 0.9 % (0-0.5); Lymphocytes Absolute Auto 1.54 K/mm3 (0.9-3.2); Lymphocytes Percent Auto 14.5 % (18.3-44.2); Mean Corpuscular HGB Conc 30.5 g/dl (32-36); Mean Corpuscular Hemoglobin 28.8 pg (26-34); Mean Corpuscular Volume 94.4 fl (80-100); Mean Platelet Volume 9.7 fl (7.4-10.4); Monocytes Absolute Auto 0.6 K/mm3 (0.1-0.6); Monocytes Percent Auto 5.5 % (2.6-8.5); Neutrophils Percent Auto 75.3 % (45.5-73.1); Platelet Count Result 354 k/mm3 (150-375); Red Blood Count 3.93 M/mm3 (4.2-5.4); Red Cell Distribution Width 15.1 % (11.5-14.5); White Blood Count 10.6 K/mm3 (4.5-10.0)
[2022-02-16 06:44] LABS: Alanine Aminotransferase 24 U/L (6-35); Albumin Level 2.5 g/dL (3.5-5.1); Alkaline Phosphatase 90 U/L (38-126); Anion Gap 10 mmol/L (8-16); Aspartate Amino Transferase 29 U/L (14-36); Bilirubin,Total 0.6 mg/dL (0.2-1.3); Blood Urea Nitrogen 3 mg/dL (7-17); Carbon Dioxide 30 mmol/L (22-30); Chloride 100 mmol/L (98-107); Estimated CRCL calculation 130 ml/min; Estimated Glomerular Filt Rate > 60; Glucose 85 mg/dL (65-110); Magnesium 2.1 mg/dL (1.6-2.3); Potassium 2.8 mmol/L (3.4-5.0); Sodium 140 mmol/L (137-145)
--- NOTE | 2022-02-16 07:57 | PM.PNCARD ---
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 Echo shows preserved LVEF without significant valvular disease. At this time [id number] score is 1, however, would obtain prior medical records to see if she has any other diagnoses that would increase her CHADS score. We do not have prior records in our chart at this time. Will request. Continue PO Amio and Metoprolol Subjective Date/time seen: 02/16/22 07:57 Cardiology follow up for Afib Remains in atrial fibrillation rate controlled on p.o. amiodarone. Does feel palpitations intermittently. Exam Const: General: no acute distress Other: Obese female HENMT: Mouth: Yes moist mucous membranes Eyes: General: appearance normal, both eyes and all related structures Sclera: sclerae normal Neck: Neck: supple Other: JVD difficult to assess given body habitus. Resp: Auscultation: diminished lung sounds Cardio: Rhythm: abnormal rhythm irregularly irregular Skin: General skin exam: normal color Neuro: Speech: normal speech Extrem: General: no edema Psych: Mental Status: mental status grossly normal Objective Data Vital Signs Vital Signs: Vital Signs - 24 hr 02/15/22 08:11 02/15/22 08:11 02/15/22 09:58 Temperature Pulse Rate 101 H 109 H Respiratory Rate 26 H Blood Pressure Pulse Oximetry 97 97 Oxygen Delivery Autopap Autopap Oxygen Flow Rate 2 02/15/22 12:00 02/15/22 12:00 02/15/22 13:14 Temperature 36.6 C Pulse Rate 74 97 94 Respiratory Rate 32 H 24 H Blood Pressure 99/58 L Pulse Oximetry 100 100 Oxygen Delivery Autopap Oxygen Flow Rate 02/15/22 08:00 02/15/22 08:00 02/15/22 12:00 Temperature Pulse Rate 106 H 93 Respiratory Rate Blood Pressure Pulse Oximetry Oxygen Delivery Autopap Oxygen Flow Rate 02/15/22 12:00 02/15/22 15:51 02/15/22 16:00 Temperature 36.6 C Pulse Rate 65 80 Respiratory Rate 24 H 16 Blood Pressure 83/53 L Pulse Oximetry 98 99 Oxygen Delivery Autopap Autopap Oxygen Flow Rate 02/15/22 16:00 02/15/22 16:00 02/15/22 20:02 Temperature Pulse Rate 81 98 Respiratory Rate Blood Pressure Pulse Oximetry Oxygen Delivery Autopap Oxygen Flow Rate 02/15/22 20:03 02/15/22 20:00 02/15/22 20:00 Temperature 36.1 C L Pulse Rate 98 98 92 Respiratory Rate 16 20 Blood Pressure 98/52 L Pulse Oximetry 99 100 Oxygen Delivery Autopap Oxygen Flow Rate 02/15/22 20:00 02/15/22 21:15 02/15/22 21:33 Temperature Pulse Rate 98 80 Respiratory Rate 14 Blood Pressure Pulse Oximetry 100 100 Oxygen Delivery Autopap CPAP Oxygen Flow Rate 2 02/15/22 22:00 02/16/22 00:00 02/16/22 00:00 Temperature Pulse Rate 83 82 82 Respiratory Rate 14 Blood Pressure Pulse Oximetry 100 Oxygen Delivery CPAP Oxygen Flow Rate 02/16/22 00:00 02/16/22 02:00 02/16/22 04:00 Temperature 36.4 C Pulse Rate 85 80 74 Respiratory Rate 22 H Blood Pressure 100/67 Pulse Oximetry 99 Oxygen Delivery Oxygen Flow Rate 02/16/22 04:00 02/16/22 04:00 02/16/22 03:21 Temperature 36.2 C L Pulse Rate 74 77 78 Respiratory Rate 22 H 22 H 24 H Blood Pressure 106/60 Pulse Oximetry 99 99 100 Oxygen Delivery CPAP Autopap Oxygen Flow Rate 02/16/22 06:00 Temperature Pulse Rate 73 Respiratory Rate Blood Pressure Pulse Oximetry Oxygen Delivery Oxygen Flow Rate Intake/Output Intake/Output: Intake & Output 02/13/22 02/14/22 1
[2022-02-16] MEDS: ENOXAPARIN 40 MG/0.4 ML SYRINGE SUB-Q (09:57)
[2022-02-16] MEDS: acetaZOLAMIDE TAB 250 MG TABLET PO (09:57)
[2022-02-16] MEDS: FUROSEMIDE 40 MG TABLET PO (09:58)
[2022-02-16] MEDS: SPIRONOLACTONE 25 MG TABLET PO ×2 (09:58→18:09)
[2022-02-16] MEDS: AMIODARONE HCL 200 MG TABLET 400 MG PO ×2 (09:58→18:08)
[2022-02-16] MEDS: ASPIRIN 81 MG ENTERIC TABLET PO (09:58)
[2022-02-16] MEDS: THERAPEUTIC MULTIVITAMINS/MINERALS TAB (*BKC) 1 TABLET PO (09:58)
[2022-02-16] MEDS: POTASSIUM CHLORIDE INJ 40 MEQ in SODIUM CHLORIDE 0.9% IV 500 ML 130 MEQ IVPB (09:59)
[2022-02-16] MEDS: METOPROLOL TARTRATE 25 MG TABLET PO ×2 (10:00→21:15)
[2022-02-16] MEDS: ALBUTEROL SULFATE NEB 2.5 MG/3 ML INH INHALATION (10:25)
[2022-02-16] MEDS: POTASSIUM CHLORIDE 20 MEQ PACKET (FOR LIQUID) PO (12:29)
--- NOTE | 2022-02-16 14:06 | PCSTNOTE ---
Please refer to the Bedside Swallow Evaluation in the EMR. Please note, silent aspiration cannot be ruled out at bedside.
--- NOTE | 2022-02-16 16:51 | PM.IMPN ---
Progress Note: A&P Assessment and Plan (1) Atrial fibrillation with RVR: Code(s): I48.91 - Unspecified atrial fibrillation Status: Acute Assessment and Plan: Status post amiodarone drip Cardiology consulted Echo EF 55-60% Chads score is 1 Placed on aspirin (2) Acute parotitis: Code(s): K11.21 - Acute sialoadenitis Status: Acute Assessment and Plan: Associated with sepsis Reviewed CT scan of the neck with acute right parotitis Continue broad-spectrum IV antibiotic bacteremia with MSSA antiboics will be switched to oxacillin. 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 Subjective Date/time seen: 02/16/22 16:51 Interval history: 61 years old female with past medical history of myotonic muscular dystrophy with chronic hypoxemic respiratory failure require BiPAP for 22 hours out of 24 hours a day presented to the hospital with hypoxia patient noted to have hypoxia her O2 sat was 88 patient had her BiPAP fallen out yesterday and since then her O2 sat was an 88 patient denies shortness of breath patient had positive facial swelling patient is poor historian history was taken from the ER record at the ER patient was found to have leukocytosis AFib with RVR given IV Cardizem started on amiodarone drip CT scan soft tissue shows positive parotitis patient was started on IV antibiotic CT scan of the chest positive for atelectasis negative for pneumonia or PE Patient condition worsening lately patient is still full code 02/14/2022 no overnight events. Remains on amiodarone drip. BNP elevated at 1360. Lactic acid 1. CT scan soft tissue neck with right-sided parotitis. CTA is negative for PE. Small lung volumes with atelectasis in the lungs with basilar predominance. Partially visualized fat stranding and right neck and face consistent with inflammation. Bacteremia present this morning. Gram-positive cocci in clusters from both aerobic bottles noted the same. at bedside 02/15/2022: No overnight events. Patient continues to feel sore on her right neck area. Remains on amiodarone drip. Remains on AFib but rate controlled. 02/16/2022: No overnight events. more awake, right neck is swollen but reports less painful but still sore. afib rate controlled. on oxygen. eatging her breakfast this am Review of Systems Review of Systems: All systems reviewed & are unremarkable except as noted in HPI and below Exam Narrative: GENERAL: ill looking, non-toxic, in no acute distress. HEAD: normocephalic, atraumatic NECK: Positive facial swelling RESPIRATORY: Airway patent, respirations nonlabored. coarse breath sounds bilaterally, no rales, rhonchi, wheezing. CARDIOVASCULAR: Irregularly irregular rate controlled without murmurs, rubs, or gallops. Peripheral pulses 2+ and equal bilaterally. ABDOMINAL: Soft, nontender, nondistended, no hepatosplenomegaly. Normoactive BS. MUSCULOSKELETAL: Moves all extremities. SKIN: Warm, dry, normal color. No rashes. NEURO: alert on BiPAP, oriented to person and place, generalized weakness PSYCHIATRIC: Appropriate mood and affect. Normal interaction. Objective Data Vital Signs Vital Signs: Vital Signs - 24 hr 11
[2022-02-16] MEDS: SENNA/DOCUSATE SODIUM TABLET 2 TAB PO (21:16)
[2022-02-17] VITALS (16 sets, daily range): BP systolic 77–106; BP diastolic 52–64; PULSE 68–100; RESP 18–28; TEMP 36.1–36.7; O2SAT 97–100
[2022-02-17] MEDS: OXACILLIN SODIUM 2 GM in SODIUM CHLORIDE 0.9% IV 100 ML IVPB ×5 (01:24→21:42)
[2022-02-17 04:43] LABS: Basophils Absolute Auto 0.1 K/mm3 (0.0-0.1); Basophils Percent Auto 0.8 % (0.2-1.2); Eosinophils Absolute Auto 0.4 K/mm3 (0-0.3); Eosinophils Percent Auto 4.8 % (0-4.4); Hematocrit 36.7 % (37.0-47.0); Hemoglobin 11.5 g/dL (12.0-15.0); Immature Granulocyte Absolute 0.16 K/mm3 (0.00-0.031); Immature Granulocyte Percent A 1.9 % (0-0.5); Lymphocytes Percent Auto 20.3 % (18.3-44.2); Mean Corpuscular HGB Conc 31.3 g/dl (32-36); Mean Corpuscular Hemoglobin 28.8 pg (26-34); Mean Corpuscular Volume 91.8 fl (80-100); Mean Platelet Volume 9.3 fl (7.4-10.4); Monocytes Absolute Auto 0.6 K/mm3 (0.1-0.6); Monocytes Percent Auto 7.3 % (2.6-8.5); Neutrophils Absolute Auto 5.4 K/mm3 (1.3-6.7); Neutrophils Percent Auto 64.9 % (45.5-73.1); Platelet Count Result 420 k/mm3 (150-375); Red Cell Distribution Width 14.8 % (11.5-14.5); White Blood Count 8.4 K/mm3 (4.5-10.0)
[2022-02-17 04:56] LABS: Alanine Aminotransferase 19 U/L (6-35); Albumin Level 2.5 g/dL (3.5-5.1); Alkaline Phosphatase 82 U/L (38-126); Anion Gap 10 mmol/L (8-16); Aspartate Amino Transferase 28 U/L (14-36); Bilirubin,Total 0.4 mg/dL (0.2-1.3); Blood Urea Nitrogen 4 mg/dL (7-17); Calcium 8.1 mg/dL (8.4-10.2); Carbon Dioxide 31 mmol/L (22-30); Chloride 100 mmol/L (98-107); Estimated CRCL calculation 130 ml/min; Estimated Glomerular Filt Rate > 60; Glucose 89 mg/dL (65-110); Magnesium 2.2 mg/dL (1.6-2.3); Potassium 3.6 mmol/L (3.4-5.0); Sodium 141 mmol/L (137-145)
[2022-02-17] MEDS: FUROSEMIDE 40 MG TABLET PO (09:45)
[2022-02-17] MEDS: AMIODARONE HCL 200 MG TABLET 400 MG PO ×2 (09:45→17:48)
[2022-02-17] MEDS: ASPIRIN 81 MG ENTERIC TABLET PO (09:45)
[2022-02-17] MEDS: acetaZOLAMIDE TAB 250 MG TABLET PO (09:45)
[2022-02-17] MEDS: METOPROLOL TARTRATE 25 MG TABLET PO ×2 (09:45→21:41)
[2022-02-17] MEDS: THERAPEUTIC MULTIVITAMINS/MINERALS TAB (*BKC) 1 TABLET PO (09:46)
[2022-02-17] MEDS: POTASSIUM CHLORIDE 20 MEQ PACKET (FOR LIQUID) PO (09:46)
[2022-02-17] MEDS: SPIRONOLACTONE 25 MG TABLET PO ×2 (09:46→17:48)
--- NOTE | 2022-02-17 10:15 | PM.PNCARD ---
Progress Note: A&P Assessment and Plan (1) Atrial fibrillation with RVR: Code(s): I48.91 - Unspecified atrial fibrillation Status: Acute Assessment and Plan: Continue amiodarone and metoprolol. Chads Vasc score of 1. 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 x1 Plan New diagnosis of atrial fibrillation in the setting of right parotitis and now bacteremia. Echo shows preserved LVEF without significant valvular disease. At this time [id number] score is 1, however, would obtain prior medical records to see if she has any other diagnoses that would increase her CHADS score. Subjective Date/time seen: 02/17/22 10:15 Interval history: Reason for visit: Atrial fibrillation with RVR Date of service 02/17/2022: She is chronically short of breath. No chest pain. Review of Systems Review of Systems: All systems reviewed & are unremarkable except as noted in HPI and below Constitutional: Constitutional: Denies chills ENT: Reports Normal hearing present Cardiovascular: Cardiovascular: Denies chest pain and Reports leg edema Respiratory: Respiratory: Reports dyspnea Gastrointestinal: Gastrointestinal: Denies abdominal pain Genitourinary: Genitourinary: Denies hematuria Musculoskeletal: Musculoskeletal: Denies back pain Integumentary/Breasts: Skin/Breast: Denies skin pain Hematologic/Lymphatic: Hematologic/Lymphatic: Denies easy bleeding Exam Narrative: Appears stated age Const: General: no acute distress Other: Obese female HENMT: Mouth: Yes moist mucous membranes Eyes: General: appearance normal, both eyes and all related structures Sclera: sclerae normal Neck: Neck: supple Other: JVD difficult to assess given body habitus. Resp: Auscultation: diminished lung sounds Other: On BIPAP. Cardio: Rate: regular rate Rhythm: abnormal rhythm irregularly irregular GI: GI Palp: Yes Soft to palpation Skin: General skin exam: normal color Neuro: Speech: normal speech Extrem: General: no edema Psych: Mental Status: mental status grossly normal Objective Data Vital Signs Vital Signs: Vital Signs - 24 hr 02/16/22 10:29 02/16/22 10:32 02/16/22 10:39 Temperature Pulse Rate 85 78 92 Respiratory Rate 24 H 24 H 24 H Blood Pressure Pulse Oximetry 100 Oxygen Delivery Autopap Oxygen Flow Rate 02/16/22 12:00 02/16/22 12:00 02/16/22 16:00 Temperature 36.2 C L Pulse Rate 77 Respiratory Rate 28 H Blood Pressure 83/56 L Pulse Oximetry 100 Oxygen Delivery CPAP CPAP Oxygen Flow Rate 02/16/22 16:00 02/16/22 12:00 02/16/22 16:00 Temperature 36.4 C L Pulse Rate 77 79 80 Respiratory Rate 28 H Blood Pressure 82/44 L Pulse Oximetry 98 Oxygen Delivery Oxygen Flow Rate 02/16/22 20:00 02/16/22 21:15 02/16/22 18:00 Temperature 36.2 C L Pulse Rate 85 87 79 Respiratory Rate 22 H 22 H Blood Pressure 87/54 L Pulse Oximetry 100 98 Oxygen Delivery Autopap Oxygen Flow Rate 02/16/22 20:00 02/16/22 23:40 02/16/22 23:40 Temperature Pulse Rate 82 76 76 Respiratory Rate 19 Blood Pressure Pulse Oximetry 100 100 Oxygen Delivery Autopap Autopap Oxygen Flow Rate 3 02/17/22 00:00 02/17/22 00:00 02/17/22 04:00 Temperature 36.3 C L 36.4 C L Pulse Rate 86 100 87 Respiratory Rate 22 H 22 H Blood Pressure 102/56 L 90/52 L Pulse Oximetry 100 98 Oxygen Delivery Oxygen Flow Rate 02/17/22 04:00 02/17/22 08:42 02/17/22 09:45 Temperature 36.2 C L Pulse Rate 86 90 93 Respiratory Rate 22 H Blood Pressure 94/55 L
[2022-02-17] MEDS: ENOXAPARIN 40 MG/0.4 ML SYRINGE SUB-Q (11:38)
[2022-02-17] MEDS: POTASSIUM CHLORIDE 20 MEQ TABLET 40 MEQ PO (11:39)
--- NOTE | 2022-02-17 13:43 | PM.IMPN ---
Progress Note: A&P Assessment and Plan (1) Atrial fibrillation with RVR: Code(s): I48.91 - Unspecified atrial fibrillation Status: Acute Assessment and Plan: Status post amiodarone drip Cardiology consulted Echo EF 55-60% Chads score is 1 Placed on aspirin (2) Acute parotitis: Code(s): K11.21 - Acute sialoadenitis Status: Acute Assessment and Plan: Associated with sepsis Reviewed CT scan of the neck with acute right parotitis Continue broad-spectrum IV antibiotic bacteremia with MSSA antiboics will be switched to oxacillin. 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 Subjective Date/time seen: 02/17/22 13:43 Interval history: 61 years old female with past medical history of myotonic muscular dystrophy with chronic hypoxemic respiratory failure require BiPAP for 22 hours out of 24 hours a day presented to the hospital with hypoxia patient noted to have hypoxia her O2 sat was 88 patient had her BiPAP fallen out yesterday and since then her O2 sat was an 88 patient denies shortness of breath patient had positive facial swelling patient is poor historian history was taken from the ER record at the ER patient was found to have leukocytosis AFib with RVR given IV Cardizem started on amiodarone drip CT scan soft tissue shows positive parotitis patient was started on IV antibiotic CT scan of the chest positive for atelectasis negative for pneumonia or PE Patient condition worsening lately patient is still full code 02/14/2022 no overnight events. Remains on amiodarone drip. BNP elevated at 1360. Lactic acid 1. CT scan soft tissue neck with right-sided parotitis. CTA is negative for PE. Small lung volumes with atelectasis in the lungs with basilar predominance. Partially visualized fat stranding and right neck and face consistent with inflammation. Bacteremia present this morning. Gram-positive cocci in clusters from both aerobic bottles noted the same. at bedside 02/15/2022: No overnight events. Patient continues to feel sore on her right neck area. Remains on amiodarone drip. Remains on AFib but rate controlled. 02/16/2022: No overnight events. more awake, right neck is swollen but reports less painful but still sore. afib rate controlled. on oxygen. eatging her breakfast this am 02/17/2022: No overnight events. On nasal cannula oxygen. Family at bedside. Discussed goals of care during the visit. Review of Systems Review of Systems: All systems reviewed & are unremarkable except as noted in HPI and below Exam Narrative: GENERAL: ill looking, non-toxic, in no acute distress. HEAD: normocephalic, atraumatic NECK: Positive facial swelling Which is not much tender today RESPIRATORY: Airway patent, respirations nonlabored. coarse breath sounds bilaterally, no rales, rhonchi, wheezing. CARDIOVASCULAR: Irregularly irregular rate controlled without murmurs, rubs, or gallops. Peripheral pulses 2+ and equal bilaterally. ABDOMINAL: Soft, nontender, nondistended, no hepatosplenomegaly. Normoactive BS. MUSCULOSKELETAL: Moves all extremities. SKIN: Warm, dry, normal color. No rashes. NEURO: alert on BiPAP, oriented to person and place
[2022-02-17] MEDS: SENNA/DOCUSATE SODIUM TABLET 2 TAB PO (21:42)
[2022-02-18] VITALS (24 sets, daily range): BP systolic 100–117; BP diastolic 53–65; PULSE 65–78; RESP 20–28; TEMP 36.2–36.7; O2SAT 96–100
[2022-02-18] MEDS: OXACILLIN SODIUM 2 GM in SODIUM CHLORIDE 0.9% IV 100 ML IVPB ×6 (01:06→20:17)
[2022-02-18 04:21] LABS: Hematocrit 37.3 % (37.0-47.0); Hemoglobin 11.3 g/dL (12.0-15.0); Mean Corpuscular HGB Conc 30.3 g/dl (32-36); Mean Corpuscular Hemoglobin 28.7 pg (26-34); Mean Corpuscular Volume 94.7 fl (80-100); Mean Platelet Volume 9.1 fl (7.4-10.4); Platelet Count Result 405 k/mm3 (150-375); Red Blood Count 3.94 M/mm3 (4.2-5.4); Red Cell Distribution Width 14.9 % (11.5-14.5); White Blood Count 10.1 K/mm3 (4.5-10.0)
[2022-02-18 04:33] LABS: Alanine Aminotransferase 18 U/L (6-35); Albumin Level 2.6 g/dL (3.5-5.1); Alkaline Phosphatase 76 U/L (38-126); Anion Gap 6 mmol/L (8-16); Aspartate Amino Transferase 31 U/L (14-36); Bilirubin,Total 0.6 mg/dL (0.2-1.3); Blood Urea Nitrogen 8 mg/dL (7-17); Calcium 7.9 mg/dL (8.4-10.2); Carbon Dioxide 32 mmol/L (22-30); Chloride 100 mmol/L (98-107); Estimated CRCL calculation 106 ml/min; Estimated Glomerular Filt Rate > 60; Glucose 95 mg/dL (65-110); Sodium 138 mmol/L (137-145)
[2022-02-18 05:24] LABS: Eosinophils Percent Manual 2 % (0-4); Lymphocytes Absolute Manual 2.92 K/mm3 (1.1-4.5); Lymphocytes Percent Manual 29 % (18-44); Metamyelocytes Percent 1 %; Monocytes Percent Manual 8 % (3-9); Neutrophils Percent Manual 60 % (46-73); Total Cells Counted 100
[2022-02-18 05:25] LABS: Atypical Lymphocytes Present; Schistocytes None Seen (NORMAL); Smudge Cells PRESENT
[2022-02-18] MEDS: ENOXAPARIN 40 MG/0.4 ML SYRINGE SUB-Q (08:57)
[2022-02-18] MEDS: SPIRONOLACTONE 25 MG TABLET PO ×2 (08:57→16:52)
[2022-02-18] MEDS: FUROSEMIDE 40 MG TABLET PO (08:57)
[2022-02-18] MEDS: AMIODARONE HCL 200 MG TABLET 400 MG PO ×2 (08:57→16:51)
[2022-02-18] MEDS: POTASSIUM CHLORIDE 20 MEQ PACKET (FOR LIQUID) PO (08:58)
[2022-02-18] MEDS: METOPROLOL TARTRATE 25 MG TABLET PO ×2 (08:58→20:18)
[2022-02-18] MEDS: THERAPEUTIC MULTIVITAMINS/MINERALS TAB (*BKC) 1 TABLET PO (08:58)
[2022-02-18] MEDS: acetaZOLAMIDE TAB 250 MG TABLET PO (08:58)
[2022-02-18] MEDS: ASPIRIN 81 MG ENTERIC TABLET PO (09:18)
--- NOTE | 2022-02-18 09:52 | PM.PNCARD ---
Progress Note: A&P Assessment and Plan (1) Atrial fibrillation with RVR: Code(s): I48.91 - Unspecified atrial fibrillation Status: Acute Assessment and Plan: Continue amiodarone and metoprolol. She will need reduction of amiodarone before discharge. She did convert to sinus rhythm or possibly accelerated junctional rhythm. Will check an EKG. Chads Vasc score of 1. 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 Echo shows preserved LVEF without significant valvular disease. At this time [id number] score is 1, however, would obtain prior medical records to see if she has any other diagnoses that would increase her CHADS score. Furosemide 40 mg IV x1. Will check an EKG for chest pain. Subjective Date/time seen: 02/18/22 09:52 Interval history: Reason for visit: Atrial fibrillation with RVR Date of service 02/18/2022: She is chronically short of breath. She does have some chest pain today also. Off CPAP at present and noticeably tachypneic Review of Systems Review of Systems: All systems reviewed & are unremarkable except as noted in HPI and below Constitutional: Constitutional: Denies chills ENT: Reports Normal hearing present Cardiovascular: Cardiovascular: Denies chest pain, Reports leg edema and Reports dyspnea Respiratory: Respiratory: Reports dyspnea Gastrointestinal: Gastrointestinal: Denies abdominal pain Genitourinary: Genitourinary: Denies hematuria Musculoskeletal: Musculoskeletal: Denies back pain Integumentary/Breasts: Skin/Breast: Denies skin pain Neurologic: Reports Normal hearing present Hematologic/Lymphatic: Hematologic/Lymphatic: Denies easy bleeding Exam Narrative: Appears stated age Const: General: no acute distress Other: Obese female HENMT: Mouth: Yes moist mucous membranes Eyes: General: appearance normal, both eyes and all related structures Sclera: sclerae normal Neck: Neck: supple Other: JVD difficult to assess given body habitus. Resp: Auscultation: diminished lung sounds Other: Tachypneic Cardio: Rate: regular rate Rhythm: regular rhythm Skin: General skin exam: normal color Neuro: Cranial nerves: Yes Normal hearing present Speech: normal speech Extrem: General: no edema Psych: Mental Status: mental status grossly normal Objective Data Vital Signs Vital Signs: Vital Signs - 24 hr 02/17/22 12:34 02/17/22 12:00 02/17/22 16:35 Temperature 36.6 C 36.7 C Pulse Rate 68 79 Respiratory Rate 28 H 24 H Blood Pressure 77/52 L 100/57 L Pulse Oximetry 99 100 Oxygen Delivery BiPAP Oxygen Flow Rate 02/17/22 16:00 02/17/22 17:48 02/17/22 12:00 Temperature Pulse Rate 86 68 Respiratory Rate Blood Pressure Pulse Oximetry Oxygen Delivery BiPAP Oxygen Flow Rate 02/17/22 16:00 02/17/22 18:00 02/17/22 20:00 Temperature 36.1 C L Pulse Rate 68 83 77 Respiratory Rate 22 H Blood Pressure 103/64 Pulse Oximetry 97 Oxygen Delivery Oxygen Flow Rate 02/17/22 20:53 02/17/22 20:53 02/17/22 21:41 Temperature Pulse Rate 76 76 76 Respiratory Rate 18 Blood Pressure Pulse Oximetry 97 100 Oxygen Delivery Autopap Autopap Oxygen Flow Rate 2 02/17/22 20:00 02/17/22 20:00 02/17/22 22:00 Temperature Pulse Rate 78 80 Respiratory Rate Blood Pressure Pulse Oximetry 97 Oxygen Delivery Autopap Oxygen Flow Rate 2 02/17/22 23:35 02/18/22 00:00 02/18/22 00:00 Temperature 36.3 C L Pulse Rate
--- NOTE | 2022-02-18 09:55 | ECG_ITS ---
Measurements Intervals [place] Rate: 63 P: 24 ND: 268 QRS: 97 QRSD: 197 T: -76 QT: 562 QTc: 578 Interpretive Statements SINUS RHYTHM WITH FIRST DEGREE AV BLOCK RIGHT AXIS DEVIATION INTRAVENTRICULAR CONDUCTION DELAY ST-T WAVE ABNORMALITY IN INFERIOR LEADS- CONSIDER ISCHEMIA PROLONGED QT INTERVAL BASELINE ARTIFACT- I, II, AVR, V6 ABNORMAL ECG COMPARED TO ECG 02/14/2022 16:09:43 SINUS RHYTHM NOW PRESENT FIRST DEGREE AV BLOCK NOW PRESENT INTRAVENTRICULAR CONDUCTION DELAY NOW PRESENT Electronically Signed On 02-18-2022 11:09:57 [employer] by Bahman Antony D.O.
[2022-02-18] MEDS: FUROSEMIDE INJ 40 MG/4 ML VIAL IV PUSH (11:00)
--- NOTE | 2022-02-18 12:59 | PM.IMPN ---
Progress Note: A&P Assessment and Plan (1) Atrial fibrillation with RVR: Code(s): I48.91 - Unspecified atrial fibrillation Status: Acute Assessment and Plan: Status post amiodarone drip Cardiology consulted Echo EF 55-60% Chads score is 1 Placed on aspirin back to sinus rhythm (2) Acute parotitis: Code(s): K11.21 - Acute sialoadenitis Status: Acute Assessment and Plan: Associated with sepsis Reviewed CT scan of the neck with acute right parotitis Continue broad-spectrum IV antibiotic bacteremia with MSSA antiboics will be switched to oxacillin. 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 TTE negative for any vegetation. EF 55-60% systolic function right ventricular is normal with no significant valvular abnormality. Plan Upper extremity edema with IV infiltration: Will check venous duplex to rule out any DVT. IV Lasix x1 Subjective Date/time seen: 02/18/22 12:59 Interval history: 61 years old female with past medical history of myotonic muscular dystrophy with chronic hypoxemic respiratory failure require BiPAP for 22 hours out of 24 hours a day presented to the hospital with hypoxia patient noted to have hypoxia her O2 sat was 88 patient had her BiPAP fallen out yesterday and since then her O2 sat was an 88 patient denies shortness of breath patient had positive facial swelling patient is poor historian history was taken from the ER record at the ER patient was found to have leukocytosis AFib with RVR given IV Cardizem started on amiodarone drip CT scan soft tissue shows positive parotitis patient was started on IV antibiotic CT scan of the chest positive for atelectasis negative for pneumonia or PE Patient condition worsening lately patient is still full code 02/14/2022 no overnight events. Remains on amiodarone drip. BNP elevated at 1360. Lactic acid 1. CT scan soft tissue neck with right-sided parotitis. CTA is negative for PE. Small lung volumes with atelectasis in the lungs with basilar predominance. Partially visualized fat stranding and right neck and face consistent with inflammation. Bacteremia present this morning. Gram-positive cocci in clusters from both aerobic bottles noted the same. at bedside 02/15/2022: No overnight events. Patient continues to feel sore on her right neck area. Remains on amiodarone drip. Remains on AFib but rate controlled. 02/16/2022: No overnight events. more awake, right neck is swollen but reports less painful but still sore. afib rate controlled. on oxygen. eatging her breakfast this am 02/17/2022: No overnight events. On nasal cannula oxygen. Family at bedside. Discussed goals of care during the visit. 02/18/2022: No overnight events. Vitals are stable. She has been much more awake and alert. at bedside. Her face is less swollen and less painful she is getting puffy in her upper arms and 1 of Her IV line has infiltrated. Review of Systems Review of Systems: All systems reviewed & are unremarkable except as noted in HPI and below Exam Narrative: GENERAL: ill looking, non-toxic, in no a
[2022-02-18] MEDS: ENOXAPARIN 100 MG/ML SYRINGE 85 MG SUB-Q (16:40)
[2022-02-18] MEDS: SENNA/DOCUSATE SODIUM TABLET 2 TAB PO (20:18)
[2022-02-18] MEDS: ONDANSETRON INJ 4 MG/2 ML VIAL IV PUSH (20:40)
[2022-02-19] VITALS (17 sets, daily range): BP systolic 94–122; BP diastolic 46–67; PULSE 63–84; RESP 18–22; TEMP 35.9–36.7; O2SAT 96–100
[2022-02-19] MEDS: OXACILLIN SODIUM 2 GM in SODIUM CHLORIDE 0.9% IV 100 ML IVPB ×6 (00:54→20:19)
[2022-02-19 04:35] LABS: Basophils Absolute Auto 0.1 K/mm3 (0.0-0.1); Basophils Percent Auto 1.1 % (0.2-1.2); Eosinophils Absolute Auto 0.2 K/mm3 (0-0.3); Eosinophils Percent Auto 2.2 % (0-4.4); Hematocrit 35.3 % (37.0-47.0); Hemoglobin 10.9 g/dL (12.0-15.0); Immature Granulocyte Percent A 6.7 % (0-0.5); Lymphocytes Absolute Auto 2.21 K/mm3 (0.9-3.2); Lymphocytes Percent Auto 21.1 % (18.3-44.2); Mean Corpuscular HGB Conc 30.9 g/dl (32-36); Mean Corpuscular Hemoglobin 28.3 pg (26-34); Mean Corpuscular Volume 91.7 fl (80-100); Mean Platelet Volume 9.1 fl (7.4-10.4); Monocytes Absolute Auto 0.7 K/mm3 (0.1-0.6); Monocytes Percent Auto 6.8 % (2.6-8.5); Neutrophils Absolute Auto 6.5 K/mm3 (1.3-6.7); Neutrophils Percent Auto 62.1 % (45.5-73.1); Platelet Count Result 411 k/mm3 (150-375); Red Blood Count 3.85 M/mm3 (4.2-5.4); Red Cell Distribution Width 14.9 % (11.5-14.5); White Blood Count 10.5 K/mm3 (4.5-10.0)
[2022-02-19 04:48] LABS: Alanine Aminotransferase 16 U/L (6-35); Albumin Level 2.6 g/dL (3.5-5.1); Alkaline Phosphatase 64 U/L (38-126); Anion Gap 6 mmol/L (8-16); Aspartate Amino Transferase 31 U/L (14-36); Bilirubin,Total 0.5 mg/dL (0.2-1.3); Blood Urea Nitrogen 7 mg/dL (7-17); Calcium 7.8 mg/dL (8.4-10.2); Carbon Dioxide 31 mmol/L (22-30); Chloride 99 mmol/L (98-107); Estimated CRCL calculation 129 ml/min; Estimated Glomerular Filt Rate > 60; Glucose 86 mg/dL (65-110); Magnesium 2.1 mg/dL (1.6-2.3); Potassium 3.1 mmol/L (3.4-5.0); Sodium 136 mmol/L (137-145)
[2022-02-19] MEDS: ENOXAPARIN 100 MG/ML SYRINGE 85 MG SUB-Q (08:48)
--- NOTE | 2022-02-19 08:55 | PM.PNCARD ---
Progress Note: A&P Assessment and Plan (1) Atrial fibrillation with RVR: Code(s): I48.91 - Unspecified atrial fibrillation Status: Acute Assessment and Plan: Continue amiodarone and metoprolol. She did convert to sinus rhythm with 1st degree AVB. Will reduce amiodarone to 400mg daily. Will need to be reduced to 200mg as a maintenance dose at discharge. Chads Vasc score of 1. Aspirin is appropriate therapy Cardiology will sign off. Please do not hesitate to contact us with questions. 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 No complaints at the time of my visit. Review of Systems Review of Systems: All systems reviewed & are unremarkable except as noted in HPI and below Constitutional: Constitutional: Denies chills ENT: Reports Normal hearing present Cardiovascular: Cardiovascular: Denies chest pain, Reports leg edema and Reports dyspnea Respiratory: Respiratory: Reports dyspnea Gastrointestinal: Gastrointestinal: Denies abdominal pain Genitourinary: Genitourinary: Denies hematuria Musculoskeletal: Musculoskeletal: Denies back pain Integumentary/Breasts: Skin/Breast: Denies skin pain Neurologic: Reports Normal hearing present Hematologic/Lymphatic: Hematologic/Lymphatic: Denies easy bleeding Exam Narrative: Appears stated age Const: General: no acute distress Other: Obese female BiPAP in place HENMT: Mouth: Yes moist mucous membranes Eyes: General: appearance normal, both eyes and all related structures Sclera: sclerae normal Neck: Neck: supple Other: JVD difficult to assess given body habitus. Resp: Auscultation: diminished lung sounds Other: Tachypneic Cardio: Rate: regular rate Rhythm: regular rhythm Heart sounds: no murmurs Skin: General skin exam: normal color Neuro: Cranial nerves: Yes Normal hearing present Speech: normal speech Extrem: General: no edema Psych: Mental Status: mental status grossly normal Objective Data Vital Signs Vital Signs: Vital Signs - 24 hr 02/18/22 08:57 02/18/22 08:58 02/18/22 10:00 Temperature Pulse Rate 73 72 66 Respiratory Rate Blood Pressure Pulse Oximetry Oxygen Delivery Oxygen Flow Rate 02/18/22 12:22 02/18/22 12:00 02/18/22 12:00 Temperature 36.7 C Pulse Rate 65 74 Respiratory Rate 20 Blood Pressure 113/65 Pulse Oximetry 99 97 Oxygen Delivery Autopap Oxygen Flow Rate 02/18/22 09:34 02/18/22 14:00 02/18/22 15:04 Temperature Pulse Rate 72 65 Respiratory Rate 25 H Blood Pressure Pulse Oximetry 97 97 Oxygen Delivery Autopap Autopap Oxygen Flow Rate 02/18/22 16:16 02/18/22 16:00 02/18/22 16:51 Temperature 36.5 C Pulse Rate 74 72 70 Respiratory Rate 28 H Blood Pressure 100/53 L Pulse Oximetry 100 Oxygen Delivery Oxygen Flow Rate 02/18/22 18:00 02/18/22 19:56 02/18/22 20:18 Temperature 36.2 C L Pulse Rate 69 72 75 Respiratory Rate 22 H Blood Pressure 105/54 L Pulse Oximetry 100 Oxygen Delivery Oxygen Flow Rate 02/18/22 22:49 02/18/22 22:49 02/18/22 23:10 Temperature 36.7 C Pulse Rate 75 75 65 Respiratory Rate 24 H 24 H 22 H Blood Pressure 110/59 L Pulse Oximetry 96 96 100 Oxygen Delivery Autopap Autopap Oxygen Flow Rate 2 02/18/22 20:00 02/18/22 20:00 02/18/22 22:00 Temperature Pulse Rate 74 69 Respiratory Rate Blood Pressure Pulse Oximetry 100 Oxygen Delivery Autopap Oxygen Flow Rate 02/19/22 00:00 02/19/22 00:00 02/19/22 02:00 [facility]
[2022-02-19] MEDS: POTASSIUM CHLORIDE 20 MEQ PACKET (FOR LIQUID) 40 MEQ PO (08:57)
[2022-02-19] MEDS: THERAPEUTIC MULTIVITAMINS/MINERALS TAB (*BKC) 1 TABLET PO (09:24)
[2022-02-19] MEDS: POTASSIUM CHLORIDE 20 MEQ PACKET (FOR LIQUID) PO (09:24)
[2022-02-19] MEDS: acetaZOLAMIDE TAB 250 MG TABLET PO (09:24)
[2022-02-19] MEDS: AMIODARONE HCL 200 MG TABLET 400 MG PO (09:24)
[2022-02-19] MEDS: ASPIRIN 81 MG ENTERIC TABLET PO (09:24)
--- NOTE | 2022-02-19 12:42 | PM.IMPN ---
Progress Note: A&P Assessment and Plan (1) Atrial fibrillation with RVR: Code(s): I48.91 - Unspecified atrial fibrillation Status: Acute Assessment and Plan: Status post amiodarone drip Cardiology consulted Echo EF 55-60% Chads score is 1 Placed on aspirin back to sinus rhythm Now on anticoagulation as she has DVTs (2) Acute parotitis: Code(s): K11.21 - Acute sialoadenitis Status: Acute Assessment and Plan: Associated with sepsis Reviewed CT scan of the neck with acute right parotitis Continue broad-spectrum IV antibiotic bacteremia with MSSA antiboics will be switched to oxacillin. 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 TTE negative for any vegetation. EF 55-60% systolic function right ventricular is normal with no significant valvular abnormality. Two weeks of oxacillin total Plan Upper extremity edema with IV infiltration: venous duplex showed left arm DVT as well as right leg DVT. Started on Lovenox. Will switch to oral anticoagulation today Subjective Date/time seen: 02/19/22 12:42 Interval history: 61 years old female with past medical history of myotonic muscular dystrophy with chronic hypoxemic respiratory failure require BiPAP for 22 hours out of 24 hours a day presented to the hospital with hypoxia patient noted to have hypoxia her O2 sat was 88 patient had her BiPAP fallen out yesterday and since then her O2 sat was an 88 patient denies shortness of breath patient had positive facial swelling patient is poor historian history was taken from the ER record at the ER patient was found to have leukocytosis AFib with RVR given IV Cardizem started on amiodarone drip CT scan soft tissue shows positive parotitis patient was started on IV antibiotic CT scan of the chest positive for atelectasis negative for pneumonia or PE Patient condition worsening lately patient is still full code 02/14/2022 no overnight events. Remains on amiodarone drip. BNP elevated at 1360. Lactic acid 1. CT scan soft tissue neck with right-sided parotitis. CTA is negative for PE. Small lung volumes with atelectasis in the lungs with basilar predominance. Partially visualized fat stranding and right neck and face consistent with inflammation. Bacteremia present this morning. Gram-positive cocci in clusters from both aerobic bottles noted the same. at bedside 02/15/2022: No overnight events. Patient continues to feel sore on her right neck area. Remains on amiodarone drip. Remains on AFib but rate controlled. 02/16/2022: No overnight events. more awake, right neck is swollen but reports less painful but still sore. afib rate controlled. on oxygen. eatging her breakfast this am 02/17/2022: No overnight events. On nasal cannula oxygen. Family at bedside. Discussed goals of care during the visit. 02/18/2022: No overnight events. Vitals are stable. She has been much more awake and alert. at bedside. Her face is less swollen and less painful she is getting puffy in her upper arms and 1 of Her IV line has infiltrated. E
[2022-02-19] MEDS: LIDOCAINE HCL 1% PF INJ 5 ML VIAL INFILTRATE (14:25)
[2022-02-19] MEDS: ONDANSETRON INJ 4 MG/2 ML VIAL IV PUSH (16:55)
[2022-02-19] MEDS: SPIRONOLACTONE 25 MG TABLET PO (17:00)
[2022-02-19] MEDS: SENNA/DOCUSATE SODIUM TABLET 2 TAB PO (20:18)
[2022-02-19] MEDS: METOPROLOL TARTRATE 25 MG TABLET PO (20:19)
[2022-02-19] MEDS: APIXABAN 5 MG TABLET 10 MG PO (20:19)
[2022-02-19] MEDS: CENTRAL LINE FLUSH 10 ML IV PUSH (22:33)
[2022-02-20] VITALS (7 sets, daily range): BP systolic 108–114; BP diastolic 53–60; PULSE 61–74; RESP 20–22; TEMP 36.3–36.4; O2SAT 96–100
[2022-02-20] MEDS: OXACILLIN SODIUM 2 GM in SODIUM CHLORIDE 0.9% IV 100 ML IVPB ×4 (01:05→14:02)
[2022-02-20 03:28] LABS: Hematocrit 36.2 % (37.0-47.0); Hemoglobin 10.9 g/dL (12.0-15.0); Mean Corpuscular HGB Conc 30.1 g/dl (32-36); Mean Corpuscular Volume 96.3 fl (80-100); Mean Platelet Volume 8.9 fl (7.4-10.4); Platelet Count Result 427 k/mm3 (150-375); Red Blood Count 3.76 M/mm3 (4.2-5.4); Red Cell Distribution Width 15.1 % (11.5-14.5); White Blood Count 9.1 K/mm3 (4.5-10.0)
[2022-02-20 03:38] LABS: Alanine Aminotransferase 15 U/L (6-35); Albumin Level 2.5 g/dL (3.5-5.1); Alkaline Phosphatase 65 U/L (38-126); Anion Gap 8 mmol/L (8-16); Aspartate Amino Transferase 28 U/L (14-36); Bilirubin,Total 0.4 mg/dL (0.2-1.3); Blood Urea Nitrogen 4 mg/dL (7-17); Carbon Dioxide 29 mmol/L (22-30); Chloride 102 mmol/L (98-107); Estimated CRCL calculation 106 ml/min; Estimated Glomerular Filt Rate > 60; Glucose 82 mg/dL (65-110); Magnesium 2.2 mg/dL (1.6-2.3); Potassium 3.5 mmol/L (3.4-5.0); Sodium 139 mmol/L (137-145)
[2022-02-20 03:58] LABS: Band Neutrophils Percent 7 % (0-6); Basophils Absolute Manual 0.09 K/mm3 (0.0-0.1); Basophils Percent Manual 1 % (0-1); Eosinophils Absolute Manual 0.18 K/mm3 (0.02-0.5); Eosinophils Percent Manual 2 % (0-4); Hypochromasia 1+ (NORMAL); Lymphocytes Absolute Manual 2.63 K/mm3 (1.1-4.5); Monocytes Absolute Manual 0.09 K/mm3 (0.1-0.90); Monocytes Percent Manual 1 % (3-9); Neutrophils Percent Manual 59 % (46-73); Platelet Estimate Adequate (Adequate); Promyelocytes Percent 1 %; Schistocytes None Seen (NORMAL); Total Cells Counted 100
[2022-02-20 03:59] LABS: Anisocytosis 1+ (NORMAL); Microcytosis 1+ (NORMAL)
[2022-02-20 04:00] LABS: Atypical Lymphocytes Present; Smudge Cells FEW
[2022-02-20] MEDS: CENTRAL LINE FLUSH 10 ML IV PUSH ×2 (08:25→14:02)
[2022-02-20] MEDS: acetaZOLAMIDE TAB 250 MG TABLET PO (08:27)
[2022-02-20] MEDS: POTASSIUM CHLORIDE 20 MEQ PACKET (FOR LIQUID) PO (08:28)
[2022-02-20] MEDS: SPIRONOLACTONE 25 MG TABLET PO (08:28)
[2022-02-20] MEDS: AMIODARONE HCL 200 MG TABLET 400 MG PO (08:28)
[2022-02-20] MEDS: THERAPEUTIC MULTIVITAMINS/MINERALS TAB (*BKC) 1 TABLET PO (08:28)
[2022-02-20] MEDS: METOPROLOL TARTRATE 25 MG TABLET PO (08:28)
[2022-02-20] MEDS: FUROSEMIDE 40 MG TABLET PO (08:28)
[2022-02-20] MEDS: APIXABAN 5 MG TABLET 10 MG PO (09:00)
[2022-02-20] MEDS: ASPIRIN 81 MG ENTERIC TABLET PO (09:14)
--- NOTE | 2022-02-20 11:54 | PCNWS ---
Weekly nutritional screen. Patient is tolerating current Heart healthy diet. Pt and family report appetite and intake are improving, pt declines all supplements as she does not like them. No weight loss reported. No nutritional recommendations at this time.
--- NOTE | 2022-02-20 13:05 | PM.DS ---
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 Status: Acute (5) Bacteremia: Code(s): R78.81 - Bacteremia Status: Acute DS: Summary Hospital Course Reason for hospitalization: 61 years old female with past medical history of myotonic muscular dystrophy with chronic hypoxemic respiratory failure require BiPAP for 22 hours out of 24 hours a day presented to the hospital with hypoxia patient noted to have hypoxia her O2 sat was 88 patient had her BiPAP fallen out yesterday and since then her O2 sat was an 88 patient denies shortness of breath patient had positive facial swelling patient is poor historian history was taken from the ER record at the ER patient was found to have leukocytosis AFib with RVR given IV Cardizem started on amiodarone drip CT scan soft tissue shows positive parotitis patient was started on IV antibiotic CT scan of the chest positive for atelectasis negative for pneumonia or PE Patient condition worsening lately patient is still full code Hospital Course: # acute on chronic hypoxic respiratory failure: Most likely related atelectasis and sepsis. She is BiPAP dependent almost 18 hours per day at baseline. CTA was negative for PE shows atelectasis. Bronchodilators as ordered. hypoxia worsening likely due to underlying sepsis # sepsis: Due to underlying right acute sialoadenitis. With bacteremia # acute encephalopathy: Improved with treatment of sepsis # AFib with RVR: On admission. New diagnosis. Started on amiodarone drip Echo with ejection fraction 55-60% Chads score was 1 placed on aspirin She converted back to sinus rhythm during the hospital stay and remained in sinus rhythm She needed anticoagulation however she had developed a DVT during the hospital stay and was started on anticoagulation. her amiodarone was switched to oral along with metoprolol that she will continue which are new medication # acute parotitis: Associated with sepsis Reviewed CT scan of the neck with acute right parotitis Continue broad-spectrum IV antibiotic bacteremia with MSSA antiboics will be switched to oxacillin. repeat blood culture On 02/15/2022 no grwoth to date Plan to continue oxacillin for 2 total weeks since negative blood culture. End date right arm PICC line placed 02/19/2022 # myotonic muscular dystrophy: Progressive patient currently BiPAP dependent 22 hours out of 24 hours a day Palliative care/hospice evaluation was done during the hospital stay. patient and family opted to continue medical therapy at this time. # MSSA bacteremia: Initially was on IV vancomycin which was switched to oxacillin Repeat blood culture negative on 02/15/2022 TTE negative for any vegetation. EF 55-60% systolic function right ventricular is normal with no significant valvular abnormality Stop date for antibiotic 02/28/2022 # new left arm and right leg DVT: Started on Lovenox initially but will be switched to oral anticoagulation Eliquis at discharge # code status full code Time Spent with Patient Time attestation: Total time spent providing and/or coordinating discharge services: 50 minutes Exam Narrative: GENERAL: will looking, non-toxic, in no acute distress. HEAD: normocephalic, atraumatic NECK: Positive facial swelling Which is much improved RESPIRATORY: Airway patent, respirations nonlabored. coarse breath sounds bilaterally, no rales, rhonchi, wheezing. CARDIOVASCULAR: Irregularly irregular rate controlled without murmurs, ru
== END 2022-02-20 15:46 | DRG 871 ==
LOC: ANHED 07:31 → ANHIMU 11:32
PROVIDERS: Admitting Provider Family Medicine; Emergency Provider Emergency Medicine; PCP Internal Medicine; Visit Provider Internal Medicine
DX: A41.01 Sepsis due to Methicillin susceptible Staphylococcus aureus (principal); K11.21 Acute sialoadenitis; J96.21 Acute and chronic respiratory failure with hypoxia; I82.622 Acute embolism and thrombosis of deep veins of left upper extremity; I82.441 Acute embolism and thrombosis of right tibial vein; I82.451 Acute embolism and thrombosis of right peroneal vein; I48.91 Unspecified atrial fibrillation; Z20.822 Contact with and (suspected) exposure to COVID-19; G71.11 Myotonic muscular dystrophy; E87.6 Hypokalemia; Z87.891 Personal history of nicotine dependence; Z79.51 Long term (current) use of inhaled steroids; Z79.82 Long term (current) use of aspirin; Z79.899 Other long term (current) drug therapy; Z91.013 Allergy to seafood; Z91.018 Allergy to other foods
CPT/HCPCS: 36415; 36569; 36600; 51701; 70491; 71045; 71275; 80053; 80202; 81001; 82375; 82805; 83050; 83605; 83735; 83880; 84439; 84443; 84480; 85025; 85610; 85730; 87040; 87147; 87181; 87186; 87636; 92610; 93005; 93306; 93970; 94640; 94660; 96361; 96365; 96366; 96367; 96368; 96372; 96375; 99285; A9270; C1751; G0378; J0282; J0295; J1650; J1940; J2270; J2405; J2700; J3370; J3480; J7030; J7040; Q9967